=== PATIENT | female | born 1955 | race Caucasian/White ===

== ENCOUNTER 2023-05-08 07:55 | Day surgery (SDC) | payer MEDICARE, SELFPAY ==
[2023-05-08] MEDS: TETRACAINE 0.5% OPHTH 1 DROP EYE-LEFT ×2 (08:15→08:25)
[2023-05-08 08:18] VITALS: BMI 63.9
[2023-05-08 08:22] VITALS: BP 155/100; PULSE 92; RESP 20; TEMP 36.8; O2SAT 92
[2023-05-08] MEDS: KETOROLAC OPHTH 0.5% 1 DROP EYE-LEFT ×2 (08:23→08:32)
--- NOTE | 2023-05-08 08:25 | SUR.PREOP ---
The eye drops brought by the patient (Ketorolac and Prednisolone) are examined and I have determined they are labeled by the patient's pharmacy for this patient as prescribed by the surgeon. The bottles are intact, recently obtained and appear to be correct.
[2023-05-08] MEDS: SODIUM CHLORIDE 0.9 % (FLUSH) 10 ML SYRINGE IVF ×2 (08:48→09:05)
[2023-05-08] MEDS: ONDANSETRON 2 MG/ML inj 4 MG IVP (09:05)
[2023-05-08] MEDS: TETRACAINE 0.5% OPHTH 2 DROP EYE-RIGHT (09:39)
[2023-05-08] MEDS: BALANCED SALT IRRIG SOLN 15 ML EYE-RIGHT (09:46)
--- NOTE | 2023-05-08 09:48 | W.ANESCHARGE ---
Anesthesia Charges Start Date/Time Anesthesia Start Date: 05/08/23 Anesthesia Start Time: 09:34 Stop Date/Time Anesthesia Stop Date: 05/08/23 Anesthesia Stop Time: 10:14
[2023-05-08 10:12] VITALS: BP 136/73; PULSE 88; RESP 20; TEMP 36.7; O2SAT 94
--- NOTE | 2023-05-08 11:02 | W.PM.OPTPROC ---
Procedure Note Date of procedure: 05/08/23 Will [facility] bill your pro fee for this procedure?: Yes Procedure Description: SURGEON: Conchis Bailon MD PREOPERATIVE DIAGNOSIS: Nuclear sclerotic cataract, right eye. POSTOPERATIVE DIAGNOSIS: Nuclear sclerotic cataract, right eye. NAME OF OPERATION: Phacoemulsification of cataract with posterior chamber intraocular lens implantation in the right eye. ANESTHESIA: Topical. ESTIMATED BLOOD LOSS: Less than 2 cc. COMPLICATIONS: None. PATHOLOGY SPECIMEN: None. INDICATIONS: See consult note for details. The risks, benefits and alternatives of the procedure were explained to the patient, who elected to proceed and signed informed consent to do so. PROCEDURE: The patient was brought to the pre-holding area where the right eye was identified as the operative eye. I placed my initials above this eye. The patient received eye drops consisting of 0.5% tetracaine, 1% tropicamide, 10% phenylephrine, and 0.5% ketorolac. The patient was then brought to the operating room where the right eye was again identified as the operative eye. The eye was prepped with Betadine and draped in the usual sterile ophthalmic fashion. A #15 super-sharp blade was used to create a paracentesis site. 1% non-preserved intracameral lidocaine was injected into the anterior chamber. Endocoat was injected into the anterior chamber. A 2.4 mm keratome was used to create a three-plane self-sealing incision 1 mm anterior to the temporal limbus. A cystotome was used to create an anterior capsular leaflet. The Utrata forceps were used to extend this to form a continuous curvilinear capsulorrhexis. Hydrodissection was performed. The cataract was removed with phacoemulsification using the [id number]-rln-qebpoho technique. The irrigation and aspiration tip was used to remove the remaining cortex. Healon was injected into the capsular bag. An SIM ZCB00 intraocular lens of 21.0 diopters was injected into the capsular bag. The irrigation and aspiration tip was used to remove the remaining viscoelastic. Balanced salt solution on a cannula was used to hydrate the wound, and the wound was found to be watertight. The pupil was noted to be round. DISPOSITION: The patient was taken to the recovery room and discharged to home in stable condition. The patient was instructed to call me or go to the emergency department with any sudden change, including dramatic loss of vision, severe pain in the eye or eyebrow region, nausea, or vomiting. The patient will follow up in the clinic tomorrow morning.
== END 2023-05-08 10:43 | disposition home or self-care (01) ==
PROVIDERS: PCP Student in an Organized Health Care Education/Training Program; Visit Provider Ophthalmology
PROC: (CPT 66984; principal; 2023-05-08 08:15)
DX: H25.11 Age-related nuclear cataract, right eye (principal)
CPT/HCPCS: 66984; 00142; A9270; J2250; J2405; J3010; V2632

== ENCOUNTER 2023-05-22 07:57 | Day surgery (SDC) | payer MEDICARE, SELFPAY ==
[2023-05-22] MEDS: TETRACAINE 0.5% OPHTH 1 DROP EYE-LEFT ×2 (08:10→08:20)
[2023-05-22] MEDS: KETOROLAC OPHTH 0.5% 1 DROP EYE-LEFT ×2 (08:18→08:26)
[2023-05-22 08:20] VITALS: BMI 63.9
[2023-05-22 08:25] VITALS: BP 183/86; PULSE 74; RESP 20; TEMP 36.3; O2SAT 94
[2023-05-22] MEDS: SODIUM CHLORIDE 0.9 % (FLUSH) 10 ML SYRINGE IVF (08:30)
--- NOTE | 2023-05-22 08:32 | W.ANESCHARGE ---
Anesthesia Charges Start Date/Time Anesthesia Start Date: 05/22/23 Anesthesia Start Time: 09:14 Stop Date/Time Anesthesia Stop Date: 05/22/23 Anesthesia Stop Time: 09:50 Summary Extremes of Age - Over 70 or under 1: MDA
[2023-05-22] MEDS: ONDANSETRON 2 MG/ML inj 4 MG IVP (09:10)
[2023-05-22] MEDS: TETRACAINE 0.5% OPHTH 2 DROP EYE-LEFT (09:20)
--- NOTE | 2023-05-22 09:21 | W.ANESCHARGE ---
Anesthesia Charges Start Date/Time Anesthesia Start Date: 05/22/23 Anesthesia Start Time: 09:14 Stop Date/Time Anesthesia Stop Date: 05/22/23 Anesthesia Stop Time: 09:50 Summary Extremes of Age - Over 70 or under 1: [employer]
[2023-05-22] MEDS: BALANCED SALT IRRIG SOLN 15 ML EYE-LEFT (09:25)
[2023-05-22 09:48] VITALS: BP 164/95; PULSE 71; RESP 16; TEMP 36.3; O2SAT 96
--- NOTE | 2023-05-22 09:51 | W.PM.OPTPROC ---
Procedure Note Date of procedure: 05/22/23 Will [facility] bill your pro fee for this procedure?: Yes Procedure Description: SURGEON: Conchis Bailon MD PREOPERATIVE DIAGNOSIS: Nuclear sclerotic cataract, left eye. POSTOPERATIVE DIAGNOSIS: Nuclear sclerotic cataract, left eye. NAME OF OPERATION: Phacoemulsification of cataract with posterior chamber intraocular lens implantation in the left eye. ANESTHESIA: Topical. ESTIMATED BLOOD LOSS: Less than 2 cc. COMPLICATIONS: None. PATHOLOGY SPECIMEN: None. INDICATIONS: See consult note for details. The risks, benefits and alternatives of the procedure were explained to the patient, who elected to proceed and signed informed consent to do so. PROCEDURE: The patient was brought to the pre-holding area where the left eye was identified as the operative eye. I placed my initials above this eye. The patient received eye drops consisting of 0.5% tetracaine, 1% tropicamide, 10% phenylephrine, and 0.5% ketorolac. The patient was then brought to the operating room where the left eye was again identified as the operative eye. The eye was prepped with Betadine and draped in the usual sterile ophthalmic fashion. A #15 super-sharp blade was used to create a paracentesis site. 1% non-preserved intracameral lidocaine was injected into the anterior chamber. Endocoat was injected into the anterior chamber. A 2.4 mm keratome was used to create a three-plane self-sealing incision 1 mm anterior to the temporal limbus. A cystotome was used to create an anterior capsular leaflet. The Utrata forceps were used to extend this to form a continuous curvilinear capsulorrhexis. Hydrodissection was performed. The cataract was removed with phacoemulsification using the [id number]-[id number]-mvslyrd technique. The irrigation and aspiration tip was used to remove the remaining cortex. Healon was injected into the capsular bag. An SIM ZCB00 intraocular lens of 21.0 diopters was injected into the capsular bag. The irrigation and aspiration tip was used to remove the remaining viscoelastic. Balanced salt solution on a cannula was used to hydrate the wound, and the wound was found to be watertight. The pupil was noted to be round. DISPOSITION: The patient was taken to the recovery room and discharged to home in stable condition. The patient was instructed to call me or go to the emergency department with any sudden change, including dramatic loss of vision, severe pain in the eye or eyebrow region, nausea, or vomiting. The patient will follow up in the clinic tomorrow morning.
--- NOTE | 2023-05-22 11:16 | P.OPTPRC_ITS ---
Procedure Note Date of procedure: 05/22/23 Will [facility] bill your pro fee for this procedure?: Yes
--- NOTE | 2023-05-22 11:16 | W.PM.OPTPROC ---
Procedure Note Date of procedure: 05/22/23 Will [facility] bill your pro fee for this procedure?: Yes
== END 2023-05-22 10:17 | disposition home or self-care (01) ==
PROVIDERS: PCP Student in an Organized Health Care Education/Training Program; Visit Provider Ophthalmology
PROC: (CPT 66984; principal; 2023-05-22 08:15)
DX: H25.12 Age-related nuclear cataract, left eye (principal)
CPT/HCPCS: 66984; 00142; 99100; J2250; J2405; J3010; V2632

== ENCOUNTER 2023-12-23 12:06 | Emergency (ER) | payer MEDICARE, SELFPAY ==
[2023-12-23] VITALS (19 sets, daily range): BP systolic 128–192; BP diastolic 70–103; PULSE 72–96; RESP 18; TEMP 36.7; O2SAT 91–98; BMI 56.6
--- NOTE | 2023-12-23 12:38 | ED.GENADULT ---
HPI - General Adult General Chief complaint: Chest Pain Stated complaint: burning chest pain, nausous Time Seen by Provider: 12/23/23 12:38 History of Present Illness HPI narrative: Chest pain, burning across chest since 0 last night , while she was just sitting , rates pain 5/ 10 currently. Also c/o nausea , heartburn symptoms, and pain into left arm. Has been having intermittent chest pains for two weeks. History of reflux, HTN, Hyperlipidemia. 68-year-old woman presenting to the emergency department with concern of burning chest pain. GI cocktail does not work. Apparently had tried some small residual she had at home. Historically with bad heartburn. This did actually help very temporarily. A burning pain begins in the midsternum and spreads and then is more sharp. Is not pleuritic. It does use 1 pillow but has elevation of the head of the bed. She has done this with history of heartburn. Just concerned with that might be cardiac. Primary restarted her on omeprazole over the last 2 weeks due to this discomfort that has been present on and off over this time. She does admit that it is not so bad that she can't sleep. She does also later note that does have a hiatal hernia as I was about to inquire Further discussion later reveals that she has been working at weight loss actually having lost little over 20 lb with last month. Related Data Home Medications Medication Instructions Recorded Confirmed lisinopril 5 mg tablet 5 mg PO QDAY 12/11/22 12/11/22 simvastatin 10 mg tablet 10 mg PO QDAY 12/11/22 05/22/23 acetaminophen 500 mg tablet 1,000 mg PO Q6H PRN 05/03/23 05/22/23 (Acetaminophen Extra Strength) aspirin 81 mg tablet,delayed 81 mg PO DAILY 05/03/23 05/22/23 release (Adult Aspirin Regimen) esomeprazole magnesium 40 mg 40 mg PO DAILY 05/03/23 05/22/23 capsule,delayed release gabapentin 300 mg capsule 300 mg PO DAILY 05/03/23 05/22/23 lisinopril 10 1 tab PO DAILY 05/03/23 05/22/23 mg-hydrochlorothiazide 12.5 mg tablet pramipexole 0.5 mg tablet 0.5 mg PO QPM 05/03/23 05/22/23 simvastatin 20 mg tablet 20 mg PO QPM 05/03/23 05/22/23 sucralfate 1 gram tablet 1 g PO QID 05/03/23 05/22/23 Previous Rx's Medication Instructions Recorded hyoscyamine sulfate 0.125 mg 0.25 mg (2 x 0.125 mg) PO QID PRN 12/23/23 tablet (Oscimin) epigatric/low sternal chest pain #30 tabs Allergies Allergy/AdvReac Type Severity Reaction Status Date / Time No Known Drug Allergies Allergy Verified 12/11/22 10:53 Review of Systems Status of ROS: Reports: 6 or more systems reviewed and unremarkable except as noted in History and below [facility] Medical History Hiatal hernia ?K44.9 - Diaphragmatic hernia without obstruction or gangrene (ICD-10) Renal cyst, right ?N28.1 - Cyst of kidney, acquired (ICD-10) Anxiety ?F41.9 - Anxiety disorder, unspecified (ICD-10) TIFFANY (obstructive sleep apnea) ?G47.33 - Obstructive sleep apnea (adult) (pediatric) (ICD-10) Other and unspecified hyperlipidemia ?E78.5 - Hyperlipidemia, unspecified (ICD-10) Esophageal reflux ?K21.9 - Gastro-esophageal reflux disease without esophagitis (ICD-10) Unspecified essential hypertension ?I10 - Essential (primary) hypertension (ICD-10) Lump of skin ?R22.9 - Localized swelling, mass and lump, unspecified (ICD-10) Surgical History Hx of knee surgery ?Z98.890 - Other specified postprocedural states (ICD-10) History of shoulder surgery ?Z98.890 - Other specified postprocedural states (ICD-10) History of surgery on wrist ?Z98.890 - Other specified postprocedural states (ICD-10) Hx of wisdom tooth extraction ?K08.409 - Partial loss of teeth, unspecified cause, unspecified class (ICD-10) History of carpal tunnel release ?Z98.890 - Other specified postprocedural states (ICD-10) Hx of breast biopsy ?Z98.890 - Other specified postprocedural states (ICD-10) Social History Smoking Status: Former smoker How often do you have a drink containing alcohol: never AUDIT-C Alcohol total score: 0 Non-prescribed substance use: denies use Caffeine: Yes service: No Exam Narrative: Exam Narrative: Pleasant. Breathing easily. Appears mildly anxious. Appears little uncomfortable. Assist to set. Heart in regular rate and rhythm. Lungs appear to be clear. Bowel sounds in the chest. Lungs appear to be clear. Chest discomfort is not really reproducible. Abdomen is overweight soft. Nontender. Extremities are well perfused. Without edema. Const: Vital Signs, click to edit/add: Vital Signs - 24 hr 12/23/23 12:18 12/23/23 12:32 12/23/23 12:32 Temperature 98.0 F 98.0 F Pulse Rate Pulse Rate [Pulse Oximeter] 96 76 Respiratory Rate 18 18 Blood Pressure Blood Pressure [Ri ght Upper Arm] 192/103 H 153/88 H Pulse Oximetry 98 97 97 Oxygen Delivery Me thod Room Air Room Air Room Air 12/23/23 12:40 12/23/23 12:45 12/23/23 13:00 Temperature Pulse Rate 77 77 72 Pulse Rate [Pulse Oximeter] Respiratory Rate Blood Pressure Blood Pressure [Ri ght Upper Arm] Pulse Oximetry 92 92 93 Oxygen Delivery Me thod 12/23/23 13:06 Temperature Pulse Rate 77 Pulse Rate [Pulse Oximeter] Respiratory Rate Blood Pressure 128/70 Blood Pressure [Ri ght Upper Arm] Pulse Oximetry 93 Oxygen Delivery Me thod Documenting provider has reviewed patient's vital signs: yes Course Vital Signs Vital signs: Initial Vital Signs Temperature 98.0 F 12/23/23 12:18 Temperature Source Temporal Artery Scan 12/23/23 12:18 Pulse Rate 96 12/23/23 12:18 Pulse Rhythm Regular 12/23/23 12:18 Respiratory Rate 18 12/23/23 12:18 Blood Pressure 192/103 H 12/23/23 12:18 Blood Pressure Mean 132 H 12/23/23 12:18 Blood Pressure Position Supine 12/23/23 12:18 Pulse Oximetry 98 12/23/23 12:18 Oxygen Delivery Method Room Air 12/23/23 12:18 Vital Signs Temperature 98.0 F 12/23/23 12:18 Pulse Rate 96 12/23/23 12:18 Respiratory Rate 18 12/23/23 12:18 Blood Pressure 192/103 H 12/23/23 12:18 Pulse Oximetry 98 12/23/23 12:18 Oxygen Delivery Method Room Air 12/23/23 12:18 Temperature 98.0 F 12/23/23 12:32 Pulse Rate 73 12/23/23 14:31 Respiratory Rate 18 12/23/23 12:32 Blood Pressure 145/81 H 12/23/23 14:31 Pulse Oximetry 91 12/23/23 14:31 Oxygen Delivery Method Room Air 12/23/23 12:32 Medications Administered Medications: Discontinued Medications Generic Name Dose Route Start Last Admin Trade Name Freq PRN Reason Stop Dose Admin Hyoscyamine 0.25 mg 12/23/23 14:00 12/23/23 14:07 Hyoscyamine Sulfate 0.125 Mg Tab SUBLINGUAL 12/23/23 14:01 0.25 mg ONCE ONE Administration Lidocaine HCl 7.5 ml 12/23/23 12:48 12/23/23 13:03 Lidocaine Hcl 4 % Top Soln 50 Ml Bottle PO 12/23/23 12:49 7.5 ml ONCE ONE Administration Lidocaine/Aluminum/Magnesium/Simeth 30 ml 12/23/23 12:48 12/23/23 13:03 Mag Hydrox/Aluminum Hyd/Simeth 30 Ml Oral.Susp PO 12/23/23 12:49 30 ml ONCE ONE Administration Ondansetron HCl 4 mg 12/23/23 15:25 12/23/23 15:30 Ondansetron 2 Mg/Ml Inj IVP 12/23/23 15:26 4 mg ONCE ONE Administration Medical Decision Making MDM Narrative Medical decision making narrative: Certainly a cardiac etiology is of concern. Will evaluate for this. I think this is more likely though some degree of esophageal reflux and esophageal irritation or gastrtis. Vascular disruption also remains in differential. Does not appear to have a pulmonary component. History and persistence independent of ingestion do not suggest gallbladder disease though that is possible I suppose as well. Pulmonary embolus is well in differential. Less likely pneumothorax or pneumomediastinum EKG reviewed and reassuring. I discuss this. Obtain labs and monitor on alarm security or surveillance monitor. Chest x-ray reviewed by me without pneumothorax. Does have some opacity/consolidation in the lower lungs that I think is more suggestive of atelectasis. Radiology over-read of chest x-ray also noting some cardiomegaly. I wonder if this was more related to portable x-ray? Labs are reassuring and with normal proBNP Did trial GI cocktail and Zofran. Admittedly was temporarily improved. Discomfort came back somewhat. Trial of hyoscyamine. This seemed to help she said. Mentioned a few times how she feels this ball that has to come up in the low sternum cervical if she could just cough or vomit it up somehow she says. I suspect this is related to inflammatory changes and tension in the distal esophagus or stomach. See patient discharge plan Medical Records Medical records reviewed: Yes I reviewed the patient's medical records Lab Data Lab results reviewed: Yes I reviewed the patient's lab results Labs: Lab Results 12/23/23 12/23/23 12/23/23 Range/Units 12:24 12:32 13:52 WBC 6.63 (4.50-11.00) K/uL RBC 4.60 (4.00-5.20) m/uL Hgb 13.4 (12.0-16.0) gm/dL Hct 40.5 (33.0-51.0) % MCV 88 (80-100) fL MCH 29 (26-34) pg MCHC 33 (32-36) gm/dL RDW Coeff of Matt 13.0 (11.5-15.5) % Plt Count 244 (140-440) K/uL Neut % (Auto) 69.0 (42.0-72.0) % Lymph % (Auto) 23.1 (20-44) % [place] % (Auto) 6.6 (0.0-11.0) % Eos % (Auto) 0.6 (0.0-7.0) % Baso % (Auto) 0.5 (0.0-3.0) % Neut # (Auto) 4.58 (1.7-7.0) K/uL Lymph # (Auto) 1.53 (0.90-2.90) K/uL [place]affee # (Auto) 0.40 (0.00-0.90) K/UL Eos # (Auto) 0.04 (0.00-0.50) K/uL Baso # (Auto) 0.03 (0.00-0.30) K/uL Abs Immat Gran (auto) 0.01 (0.00-0.30) K/uL Imm/Tot Granulo (auto) 0.2 % PT INR D-Dimer Quant (PE/DVT) (0.00-0.50) ug/ml Sodium 139 (135-149) mmol/L Potassium 3.8 (3.6-5.1) mmol/L Chloride 102 (96-114) mmol/L Carbon Dioxide 29 (20-32) mmol/L Anion Gap 8 (7-15) mEq/L BUN 24 (7-30) mg/dL Creatinine 0.7 (0.5-1.5) mg/dL Estimated Creat Clear 47.10 Estimated GFR 93 ml/min Glucose 114 (60-115) mg/dL Calcium 10.1 (8.4-10.6) mg/dL Total Bilirubin 0.9 (0.1-1.5) mg/dL Direct Bilirubin 0.3 (0.0-0.5) mg/dL AST 23 (12-35) U/L ALT 20 (4-35) U/L Alkaline Phosphatase 104 (40-150) U/L Troponin I < 0.01 L (0.01-0.04) ng/mL C-Reactive Protein < 0.5 L (0.5-1.0) mg/dL NT-Pro-B Natriuret Pep 32 pg/mL Total Protein 8.1 (6.0-8.3) g/dL Albumin 4.3 (3.3-5.0) g/dL Lipase 45 (23-300) U/L Lab Acknowledgement Test Added POC Troponin I 0.00 L (0.01-0.04) ng/ml 12/23/23 Range/Units 15:12 WBC (4.50-11.00) K/uL RBC (4.00-5.20) m/uL Hgb (12.0-16.0) gm/dL Hct (33.0-51.0) % MCV (80-100) fL MCH (26-34) pg MCHC (32-36) gm/dL RDW Coeff of Matt (11.5-15.5) % Plt Count (140-440) K/uL Neut % (Auto) (42.0-72.0) % Lymph % (Auto) (20-44) % [place]affee % (Auto) (0.0-11.0) % Eos % (Auto) (0.0-7.0) % Baso % (Auto) (0.0-3.0) % Neut # (Auto) (1.7-7.0) K/uL Lymph # (Auto) (0.90-2.90) K/uL [place] # (Auto) (0.00-0.90) K/UL Eos # (Auto) (0.00-0.50) K/uL Baso # (Auto) (0.00-0.30) K/uL Abs Immat Gran (auto) (0.00-0.30) K/uL Imm/Tot Granulo (auto) % PT Cancelled INR Cancelled D-Dimer Quant (PE/DVT) 0.41 (0.00-0.50) ug/ml Sodium (135-149) mmol/L Potassium (3.6-5.1) mmol/L Chloride (96-114) mmol/L Carbon Dioxide (20-32) mmol/L Anion Gap (7-15) mEq/L BUN (7-30) mg/dL Creatinine (0.5-1.5) mg/dL Estimated Creat Clear Estimated GFR ml/min Glucose (60-115) mg/dL Calcium (8.4-10.6) mg/dL Total Bilirubin (0.1-1.5) mg/dL Direct Bilirubin (0.0-0.5) mg/dL AST (12-35) U/L ALT (4-35) U/L Alkaline Phosphatase (40-150) U/L Troponin I (0.01-0.04) ng/mL C-Reactive Protein (0.5-1.0) mg/dL NT-Pro-B Natriuret Pep pg/mL Total Protein (6.0-8.3) g/dL Albumin (3.3-5.0) g/dL Lipase (23-300) U/L Lab Acknowledgement POC Troponin I (0.01-0.04) ng/ml ECG Data Attestation: I personally reviewed and interpreted this ECG as follows: (Normal sinus rhythm. Without ischemic changes. Rate of 90.) Discharge Plan Discharge Clinical Impression: Atypical chest pain, Hiatal hernia with GERD Patient Disposition: Home w/ Parent or Adult Condition: Improved Additional Instructions: I do think that some of your discomfort is related to gastroesophageal reflux. I have not seen evidence otherwise to indicate that it is your heart. This surgery I was talking about is a Bri fundoplication. I am not sure that that is what was discussed with you about your hiatal hernia. You might consider addition of a medication like famotidine temporarily and regularly over the next 2 weeks or so. This is an acid supervisor grips. This can be though also taken on an as-needed basis with more rapid onset than a proton pump inhibitor like omeprazole or use omeprazole. You can still take liquid antacid/anti-gas for flares or Tums or Pepto. Stay well-hydrated. Sounds like you're doing more physical activity. Weight less can be complicated. As you are able I would bring weights into your workouts/general activity. Would probably be good idea to get professional advice on how to be working out and/or losing weight. It sounds as though is though you're headed in the right direction. The medication that I mentioned that can be helpful for some persons who are no longer having success, is semaglutide. I am not trying to encourage this necessary, it was just a part of our conversation. I sent in a prescription of hyoscyamine as you seemed to indicate that this was helpful. The idea here is that this helps with smooth muscle relaxation. The test of clotting called D-dimer was normal Prescriptions: New hyoscyamine sulfate [Oscimin] 0.125 mg tablet 0.25 mg PO QID PRN (Reason: epigatric/low sternal chest pain) Qty: 30 1RF No Action lisinopril 5 mg tablet 5 mg PO QDAY simvastatin 10 mg tablet 10 mg PO QDAY acetaminophen [Acetaminophen Extra Strength] 500 mg tablet 1,000 mg PO Q6H PRN aspirin [Adult Aspirin Regimen] 81 mg tablet,delayed release (DR/EC) 81 mg PO DAILY sucralfate 1 gram tablet 1 g PO QID pramipexole 0.5 mg tablet 0.5 mg PO QPM simvastatin 20 mg tablet 20 mg PO QPM esomeprazole magnesium 40 mg capsule,delayed release(DR/EC) 40 mg PO DAILY gabapentin 300 mg capsule 300 mg PO DAILY lisinopril-hydrochlorothiazide 10-12.5 mg tablet 1 tab PO DAILY Follow Up/Referrals: Malecha,Deepa M, PA-C [Primary Care Provider] - Stand Alone Forms: [employer] Info Instructions
[2023-12-23 12:43] LABS: Basophils Absolute Auto 0.03 K/uL (0.00-0.30); Basophils Percent Auto 0.5 % (0.0-3.0); Eosinophils Absolute Auto 0.04 K/uL (0.00-0.50); Eosinophils Percent Auto 0.6 % (0.0-7.0); Hematocrit 40.5 % (33.0-51.0); Hemoglobin* 13.4 gm/dL (12.0-16.0); Immature Granulocytes Abs Auto 0.01 K/uL (0.00-0.30); Immature Granulocytes Pct Auto 0.2 %; Lymphocytes Absolute Auto 1.53 K/uL (0.90-2.90); Lymphocytes Percent Auto 23.1 % (20-44); Mean Corpuscular HGB Conc 33 gm/dL (32-36); Mean Corpuscular Hemoglobin 29 pg (26-34); Mean Corpuscular Volume 88 fL (80-100); Monocytes Percent Auto 6.6 % (0.0-11.0); Neutrophils Absolute Auto 4.58 K/uL (1.7-7.0); Platelet Count* 244 K/uL (140-440); White Blood Count* 6.63 K/uL (4.50-11.00)
[2023-12-23 12:45] LABS: Slide Review Reflex No
--- NOTE | 2023-12-23 12:49 | XR_ITS ---
Final Report Patient: RAYSHAWN DA SILVA Facility:?[facility] Patient ID:?[id number] Site Patient ID:?[id number]. Site :?[id number] Study:?XRay Chest 1 VIEW PORTABLE-12/23/2023 1:26:24 PM Ordering Physician:LILIAM Final Report: INDICATION: BURNING CHEST PAIN NAUSA TECHNIQUE: Chest 1 views. COMPARISON: None. IMPRESSION: Cardiovascular and mediastinum: Moderate cardiomegaly. Lungs and pleural spaces: Mild central vascular congestion and interstitial prominence likely related to mild interstitial edema. Bibasilar opacities favoring atelectasis. No effusion or pneumothorax. Bones and soft tissues: No significant findings. Dictated by Be Sands MD @ 12/23/2023 3:28:35 PM (Electronic Signature)
[2023-12-23 12:55] LABS: Chloride* 102 mmol/L (96-114)
[2023-12-23 12:56] LABS: Potassium* 3.8 mmol/L (3.6-5.1); Sodium* 139 mmol/L (135-149)
[2023-12-23 12:58] LABS: Creatinine* 0.7 mg/dL (0.5-1.5); Estimated Glomerular Filt Rate 93 ml/min
[2023-12-23 12:59] LABS: Anion Gap 8 mEq/L (7-15); Blood Urea Nitrogen* 24 mg/dL (7-30); Calcium* 10.1 mg/dL (8.4-10.6); Carbon Dioxide* 29 mmol/L (20-32); Glucose* 114 mg/dL (60-115)
[2023-12-23] MEDS: MAG HYDROX/ALUMINUM HYD/SIMETH 30 ML ORAL.SUSP PO (13:03)
[2023-12-23] MEDS: lidocaine HCL 4 % TOP SOLN 50 ML BOTTLE 7.5 ML PO (13:03)
[2023-12-23 13:05] LABS: Albumin* 4.3 g/dL (3.3-5.0)
[2023-12-23 13:08] LABS: Alkaline Phosphatase* 104 U/L (40-150); Aspartate Amino Transferase* 23 U/L (12-35); Bilirubin Direct* 0.3 mg/dL (0.0-0.5); Bilirubin Total* 0.9 mg/dL (0.1-1.5); Lipase* 45 U/L (23-300); Total Protein* 8.1 g/dL (6.0-8.3)
[2023-12-23 13:09] LABS: Alanine Aminotransferase* 20 U/L (4-35)
[2023-12-23 13:23] LABS: C Reactive Protein* < 0.5 mg/dL (0.5-1.0); NT Pro B Type NatriureticPept* 32 pg/mL; Troponin I* < 0.01 ng/mL (0.01-0.04)
[2023-12-23] MEDS: HYOSCYAMINE SULFATE 0.125 MG TAB 0.25 MG SUBLINGUAL (14:07)
[2023-12-23] MEDS: ONDANSETRON 2 MG/ML inj 4 MG IVP (15:30)
[2023-12-23 15:44] LABS: D Dimer Quantitative* 0.41 ug/ml (0.00-0.50)
== END 2023-12-23 16:01 | disposition home or self-care (01) ==
PROVIDERS: Emergency Provider Family Medicine; PCP Student in an Organized Health Care Education/Training Program
DX: R07.9 Chest pain, unspecified (principal); K21.9 Gastro-esophageal reflux disease without esophagitis
CPT/HCPCS: 36415; 71045; 80048; 80076; 83690; 83880; 84484; 85025; 85379; 85610; 86140; 93005; 96374; 99284; 99285; A9270; J2405

== ENCOUNTER 2024-01-02 13:59 | Outpatient (CLI) | payer MEDICARE, SELFPAY ==
--- NOTE | 2024-01-02 14:30 | XR_ITS ---
Patient: RAYSHAWN DA SILVA Facility:?[facility] Patient ID:?[id number] Site Patient ID:?[id number]. Site :?[id number] Study:?DEXA-Bone Density SPINE/BOTH HIPS-01/02/2024 3:06:49 PM Ordering Physician:FLORI Final Report: DXA BONE MINERAL DENSITY STUDY Reason for exam: Postmenopausal, screening. Current height (in): 64.0. Weight (lb): 340.0. Menopause age: 48. Ethnicity: White. 1. Have you had a previous hip or vertebral fracture? No. 2. Have you had any fractures during your adult life which did not result from significant trauma (e.g., auto accident)? No. 3. Did either of your parents have a hip fracture? No. 4. Do you smoke? Yes. 5. Have you ever taken Glucocorticoids? No. 6. Do you have rheumatoid arthritis? No. 7. Do you have secondary osteoporosis? No. 8. Do you drink 3 or more alcoholic drinks per day? No. 9. Are you being treated for osteoporosis? No. 10. Have you ever taken any of the following medications: Actonel, Evista, Fosamax, Miacalcin, Reclast, Boniva, Forteo, HRT (i.e. estrogen/hormone therapy), Protelos, Prolia, Vitamin D, Calcium, other ? please specify. ANSWER: No. 11. Do you have any of the following medical conditions: Anorexia or bulimia, asthma or emphysema, end stage renal disease, hyperparathyroidism, any seizure disorders, cancer, inflammatory bowel diseases, hysterectomy, other ? please specify. ANSWER: No. 12. What was your maximum height (inches)? 65. 13. Do you perform weight bearing exercise regularly? Yes. 14. Do you regularly consume dairy products? Yes. 15. Do you drink caffeinated beverages? Yes. 16. At what age did your period start? 11. 17. Are you premenopausal? No. 18. How many full term pregnancies have you had? 2. 19. Have you ever missed your period for more than 6 months in a row (not including or menopause)? No. TECHNIQUE: Bone mineral density study was performed using the [employer]. FINDINGS: The results of the study expressed as bone mineral density (BMD) are as follows: Lumbar spine L1 to L4: BMD: 1.010 g/cm2. T-score: -0.3. Z-score: 1.8. Neck Left: BMD: 0.763 g/cm2. T-score: -0.8. Z-score: 1.1. Right: BMD: 0.679 g/cm2. T-score: -1.5. Z-score: 0.3. Total Left: BMD: 0.888 g/cm2. T-score: -0.4. Z-score: 1.1. Right: BMD: 0.864 g/cm2. T-score: -0.6. Z-score: 0.9. IMPRESSION: Osteopenia. FRAX 10-year Fracture Risk Major Osteoporotic Fracture: 8.5 percent Hip Fracture: 1.9 percent Reported Risk Factors: [place] () Neck BMD=0.679, BMI=47.3, smoking. Input outside FRAX limits. Adjusted to: Weight 125 kg. Oziel Rosales M.D. Diagnostic Radiologist [email or web address] JOSE/[email or web address] / be/Dictated by: Oziel Rosales MD @ 01/03/2024 9:20:00 AM Signed by:?Oziel Rosales MD @01/04/2024 10:15:00 AM (Electronic Signature)
== END 2024-01-02 14:00 | disposition home or self-care (01) ==
LOC: RAD 14:00
PROVIDERS: PCP Student in an Organized Health Care Education/Training Program; Visit Provider Student in an Organized Health Care Education/Training Program
DX: Z13.820 Encounter for screening for osteoporosis (principal); M85.88 Other specified disorders of bone density and structure, other site; Z78.0 Asymptomatic menopausal state
CPT/HCPCS: 77080

== ENCOUNTER 2024-05-12 12:20 | Emergency (ER) | payer MEDICARE, SELFPAY ==
[2024-05-12] VITALS (33 sets, daily range): BP systolic 102–175; BP diastolic 53–95; PULSE 74–95; RESP 16–20; TEMP 37.1; O2SAT 92–98; BMI 58.2
--- NOTE | 2024-05-12 14:09 | ED.CHESTPAIN ---
HPI - Chest Pain General Time Seen by Provider: 14:09 Date Seen: 05/12/24 Chief Complaint: Chest Pain Stated Complaint: Chest pain, arm pain, nausea Time Seen by Provider: 05/12/24 14:09 Source: patient, family, RN notes reviewed and old records reviewed Mode of arrival: ambulatory Limitations: no limitations History of Present Illness HPI narrative: 69-year-old female with history of hypertension and up hypocholesterolemia as well as gastritis who presents today with nausea and chest pain. Patient describes burning pressure in the middle of the chest along with nausea, no vomiting. Does not have pain with swallowing, is eating and drinking okay although has not had anything date today. Pain improved with Mylanta at home. Pain is been intermittent for four days, more consistent today. Related Data Home Medications ?Medication ?Instructions ?Recorded ?Confirmed lisinopril 5 mg tablet 5 mg PO QDAY 12/11/22 12/11/22 simvastatin 10 mg tablet 10 mg PO QDAY 12/11/22 05/22/23 acetaminophen 500 mg tablet 1,000 mg PO Q6H PRN 05/03/23 05/22/23 (Acetaminophen Extra Strength) aspirin 81 mg tablet,delayed 81 mg PO DAILY 05/03/23 05/22/23 release (Adult Aspirin Regimen) esomeprazole magnesium 40 mg 40 mg PO DAILY 05/03/23 05/22/23 capsule,delayed release gabapentin 300 mg capsule 300 mg PO DAILY 05/03/23 05/22/23 lisinopril 10 1 tab PO DAILY 05/03/23 05/22/23 mg-hydrochlorothiazide 12.5 mg tablet pramipexole 0.5 mg tablet 0.5 mg PO QPM 05/03/23 05/22/23 simvastatin 20 mg tablet 20 mg PO QPM 05/03/23 05/22/23 sucralfate 1 gram tablet 1 g PO QID 05/03/23 05/22/23 Previous Rx's ?Medication ?Instructions ?Recorded hyoscyamine sulfate 0.125 mg 0.25 mg (2 x 0.125 mg) PO QID PRN 12/23/23 tablet (Oscimin) epigatric/low sternal chest pain #30 tabs Allergies Allergy/AdvReac Type Severity Reaction Status Date / Time No Known Drug Allergies Allergy Verified 05/12/24 12:52 PFSH PFS Medical History Hiatal hernia ?K44.9 - Diaphragmatic hernia without obstruction or gangrene (ICD-10) Renal cyst, right ?N28.1 - Cyst of kidney, acquired (ICD-10) Anxiety ?F41.9 - Anxiety disorder, unspecified (ICD-10) TIFFANY (obstructive sleep apnea) ?G47.33 - Obstructive sleep apnea (adult) (pediatric) (ICD-10) Other and unspecified hyperlipidemia ?E78.5 - Hyperlipidemia, unspecified (ICD-10) Esophageal reflux ?K21.9 - Gastro-esophageal reflux disease without esophagitis (ICD-10) Unspecified essential hypertension ?I10 - Essential (primary) hypertension (ICD-10) Lump of skin ?R22.9 - Localized swelling, mass and lump, unspecified (ICD-10) Surgical History Hx of knee surgery ?Z98.890 - Other specified postprocedural states (ICD-10) History of shoulder surgery ?Z98.890 - Other specified postprocedural states (ICD-10) History of surgery on wrist ?Z98.890 - Other specified postprocedural states (ICD-10) Hx of wisdom tooth extraction ?K08.409 - Partial loss of teeth, unspecified cause, unspecified class (ICD-10) History of carpal tunnel release ?Z98.890 - Other specified postprocedural states (ICD-10) Hx of breast biopsy ?Z98.890 - Other specified postprocedural states (ICD-10) Social History Smoking Status: Former smoker How often do you have a drink containing alcohol: never AUDIT-C Alcohol total score: 0 Non-prescribed substance use: denies use Caffeine: Yes service: No Exam Narrative Exam Narrative: General: Well-developed and well-nourished, no acute distress Head: Atraumatic and normocephalic Eyes: Pupils are equal reactive, extraocular motions intact, conjunctiva clear ENT: External nose and ears are normal, posterior pharynx without erythema or exudate Neck: No midline cervical tenderness, full spontaneous range of motion the neck, trachea midline, no adenopathy Heart: Regular rate and rhythm no murmurs or thrills Lungs: Clear to auscultation bilaterally without wheezes or crackles Abdomen: Soft, epigastric tenderness, nondistended with active bowel sounds Musculoskeletal: No tenderness, deformity, or edema Neurologic: Awake, alert, and oriented x3, no gross focal neurologic deficits, cranial nerves intact as tested Psych: Mood and affect are appropriate Skin: No rashes Const Vital Signs, click to edit/add: Vital Signs - 24 hr 05/12/24 12:48 05/12/24 13:54 05/12/24 13:55 Temperature 98.8 F Pulse Rate 83 79 Pulse Rate [Pulse Oximeter] 83 Respiratory Rate 20 Blood Pressure 151/78 H Blood Pressure [Right Upper Arm] 159/90 H Pulse Oximetry 94 93 96 Oxygen Delivery Method Room Air 05/12/24 14:00 05/12/24 14:30 05/12/24 15:01 Temperature Pulse Rate 79 88 77 Pulse Rate [Pulse Oximeter] Respiratory Rate Blood Pressure Blood Pressure [Right Upper Arm] Pulse Oximetry 94 96 95 Oxygen Delivery Method 05/12/24 15:02 05/12/24 15:08 05/12/24 15:12 Temperature Pulse Rate 78 78 78 Pulse Rate [Pulse Oximeter] Respiratory Rate Blood Pressure 175/80 H 148/74 H 138/77 Blood Pressure [Right Upper Arm] Pulse Oximetry 96 96 94 Oxygen Delivery Method 05/12/24 15:17 05/12/24 15:18 05/12/24 15:22 Temperature Pulse Rate 79 74 84 Pulse Rate [Pulse Oximeter] Respiratory Rate Blood Pressure 148/83 H 140/72 H Blood Pressure [Right Upper Arm] Pulse Oximetry 97 97 97 Oxygen Delivery Method 05/12/24 15:27 05/12/24 15:30 05/12/24 15:33 Temperature Pulse Rate 75 77 84 Pulse Rate [Pulse Oximeter] Respiratory Rate Blood Pressure 134/74 146/80 H Blood Pressure [Right Upper Arm] Pulse Oximetry 98 93 98 Oxygen Delivery Method 05/12/24 18:45 05/12/24 18:46 05/12/24 18:52 Temperature Pulse Rate 79 78 83 Pulse Rate [Pulse Oximeter] Respiratory Rate Blood Pressure 151/67 H 162/60 H Blood Pressure [Right Upper Arm] Pulse Oximetry 95 96 95 Oxygen Delivery Method 05/12/24 18:59 05/12/24 19:00 05/12/24 19:03 Temperature Pulse Rate 95 92 Pulse Rate [Pulse Oximeter] 93 Respiratory Rate 20 Blood Pressure 132/69 Blood Pressure [Right Upper Arm] 162/90 H Pulse Oximetry 94 93 92 Oxygen Delivery Method Room Air 05/12/24 19:12 05/12/24 19:23 05/12/24 19:33 Temperature Pulse Rate 78 79 81 Pulse Rate [Pulse Oximeter] Respiratory Rate 16 16 Blood Pressure 136/77 150/83 H 149/77 H Blood Pressure [Right Upper Arm] Pulse Oximetry 94 94 95 Oxygen Delivery Method 05/12/24 19:42 Temperature Pulse Rate 82 Pulse Rate [Pulse Oximeter] Respiratory Rate 16 Blood Pressure 150/78 H Blood Pressure [Right Upper Arm] Pulse Oximetry 95 Oxygen Delivery Method Course Course ED Course: Patient seen examined, reviewed prior emergency department visit from December 23 which was for chest pain which at that time she described as burning, negative cardiac evaluation and patient was discharged. Patient presents today with burning pain in the chest with some pressure, nausea, improved transiently with Mylanta but comes back. Denies shortness of breath, leg swelling, abdominal pain. No prior abdominal surgeries. Initial EKG is reassuring, labs are ordered, suspect gastrointestinal source of symptoms today, will check troponin as well as upper abdominal labs. Reevaluation(s) Time of Reevaluation #1: 15:16 Reevaluation #1: Labs independently interpreted by me with elevated troponin 0.17, CRP normal, BNP is normal, lipase is normal. Will repeat troponin at 2:00 a.m. to trend, no EKG changes. EKG independently interpreted by me performed at 12:56 p.m. demonstrates sinus rhythm rate 87, no acute ST elevations or depressions, normal intervals, normal axis, MT 152, QTC 438. No prior for comparison. Time of Reevaluation #2: 18:16 Reevaluation #2: Repeat troponin is 0.19. Will discuss with cardiology, likely transfer. Heparin and nitroglycerin ordered. Time of Reevaluation #3: 18:29 Reevaluation #3: Care discussed with Dr. Lomas, cardiology who agrees with plan for heparin and nitroglycerin, recommend sublingual before starting drip and accepts patient for transfer with delay. Vital Signs Vital signs: Initial Vital Signs Temperature 98.8 F 05/12/24 12:48 Temperature Source Temporal Artery Scan 05/12/24 12:48 Pulse Rate 83 05/12/24 12:48 Pulse Rhythm Regular 05/12/24 12:48 Respiratory Rate 20 05/12/24 12:48 Blood Pressure 159/90 H 05/12/24 12:48 Blood Pressure Mean 113 H 05/12/24 12:48 Pulse Oximetry 94 05/12/24 12:48 Oxygen Delivery Method Room Air 05/12/24 12:48 Vital Signs Temperature 98.8 F 05/12/24 12:48 Pulse Rate 83 05/12/24 12:48 Respiratory Rate 20 05/12/24 12:48 Blood Pressure 159/90 H 05/12/24 12:48 Pulse Oximetry 94 05/12/24 12:48 Oxygen Delivery Method Room Air 05/12/24 12:48 Temperature 98.8 F 05/12/24 12:48 Pulse Rate 82 05/12/24 19:42 Respiratory Rate 16 05/12/24 19:42 Blood Pressure 150/78 H 05/12/24 19:42 Pulse Oximetry 95 05/12/24 19:42 Oxygen Delivery Method Room Air 05/12/24 18:59 Medications Administered Medications: Generic Name Dose Route Start Last Admin Trade Name Freq PRN Reason Stop Dose Admin Aspirin 324 mg 05/12/24 18:28 05/12/24 18:50 Aspirin 81 Mg Tab.Chew PO 05/12/24 18:29 324 mg ONCE ONE Administration Heparin Sodium (Porcine) 4,000 unit 05/12/24 18:23 05/12/24 18:47 Heparin 5,000 Unit/0.5 Ml Inj IVP 05/12/24 18:24 4,000 unit ONCE ONE Administration Heparin Sodium/Dextrose 25,000 unit in 500 mls @ 0 mls/hr 05/12/24 18:30 05/12/24 18:49 Heparin IV 1,000 unit/hr .Q0M JOSE R 20 mls/hr Administration Protocol Per Protocol Nitroglycerin 0.4 mg 05/12/24 18:29 05/12/24 18:49 Nitroglycerin 0.4 Mg Tab.Subl SUBLINGUAL 0.4 mg Q5M PRN Administration Pramipexole Dihydrochloride 0.5 mg 05/12/24 19:53 05/12/24 20:04 Pramipexole 0.25 Mg Tablet PO 05/12/24 19:54 0.5 mg HS ONE Administration Simvastatin 20 mg 05/12/24 21:00 05/12/24 20:04 Simvastatin 20 Mg Tablet PO 20 mg HS JOSE R Administration Discontinued Medications Generic Name Dose Route Start Last Admin Trade Name Luke PRN Reason Stop Dose Admin Famotidine 20 mg 05/12/24 14:22 05/12/24 16:02 Famotidine 10 Mg/Ml Inj IVP 05/12/24 14:23 20 mg ONCE ONE Administration Hyoscyamine 0.125 mg 05/12/24 14:23 05/12/24 16:02 Hyoscyamine Sulfate 0.125 Mg Tab SUBLINGUAL 05/12/24 14:24 0.125 mg ONCE ONE Administration Lidocaine/Aluminum/Magnesium/Simeth 30 ml 05/12/24 14:22 05/12/24 16:02 Gi Cocktail (Visc Lido/Antacid) 30 Ml PO 05/12/24 14:23 30 ml ONCE ONE Administration MDM - Chest Pain Lab Data Labs: Lab Results 05/12/24 05/12/24 05/12/24 Range/Units 14:20 14:22 14:34 INR 0.95 (0.91-1.10) APTT 31 (23-33) Seconds Sodium 136 (135-149) mmol/L Potassium 4.1 (3.6-5.1) mmol/L Chloride 100 (96-114) mmol/L Carbon Dioxide 29 (20-32) mmol/L Anion Gap 7 (7-15) mEq/L BUN 16 (7-30) mg/dL Creatinine 0.7 (0.5-1.5) mg/dL Estimated Creat Clear 46.43 Estimated GFR 92 ml/min Glucose 115 (60-115) mg/dL Calcium 10.3 (8.4-10.6) mg/dL Total Bilirubin 0.6 (0.1-1.5) mg/dL Direct Bilirubin 0.2 (0.0-0.5) mg/dL AST 21 (12-35) U/L ALT 20 (4-35) U/L Alkaline Phosphatase 125 (40-150) U/L Troponin I 0.17 H* (0.01-0.04) ng/mL C-Reactive Protein < 0.5 L (0.5-1.0) mg/dL NT-Pro-B Natriuret Pep 402 pg/mL Total Protein 7.5 (6.0-8.3) g/dL Albumin 4.2 (3.3-5.0) g/dL Lipase 58 (23-300) U/L Lab Acknowledgement POC Troponin I 0.14 H (0.01-0.04) ng/ml 05/12/24 05/12/24 05/12/24 Range/Units 14:44 15:44 17:00 INR (0.91-1.10) APTT (23-33) Seconds Sodium (135-149) mmol/L Potassium (3.6-5.1) mmol/L Chloride (96-114) mmol/L Carbon Dioxide (20-32) mmol/L Anion Gap (7-15) mEq/L BUN (7-30) mg/dL Creatinine (0.5-1.5) mg/dL Estimated Creat Clear Estimated GFR ml/min Glucose (60-115) mg/dL Calcium (8.4-10.6) mg/dL Total Bilirubin (0.1-1.5) mg/dL Direct Bilirubin (0.0-0.5) mg/dL AST (12-35) U/L ALT (4-35) U/L Alkaline Phosphatase (40-150) U/L Troponin I 0.19 H* (0.01-0.04) ng/mL C-Reactive Protein (0.5-1.0) mg/dL NT-Pro-B Natriuret Pep pg/mL Total Protein (6.0-8.3) g/dL Albumin (3.3-5.0) g/dL Lipase (23-300) U/L Lab Acknowledgement Test Added Test Added POC Troponin I (0.01-0.04) ng/ml Critical Care Time Critical Care Time Critical Care Time: Yes (NSTEMI) Attestation: The patient required my highest level preparedness to intervene emergently and I personally spent this critical care time directly and personally managing the patient. This critical care time included: Obtaining a history; Examining the patient; Pulse oximetry; Ordering and reviewing of studies; Arranging urgent treatment with development of a management plan; Evaluation of patients response to treatment; Frequent reassessment discussions with other providers. This critical care time was performed to assess and manage the high probability of imminent life-threatening deterioration that could result in multiorgan failure. It was exclusive of separate billable procedures and treating other patients and teaching time. Total Critical Care Time in Minutes: 80 Discharge Plan Discharge Clinical Impression: Non-ST elevation [place] (NSTEMI) Patient Disposition: [facility] Prescriptions: No Action lisinopril 5 mg tablet 5 mg PO QDAY simvastatin 10 mg tablet 10 mg PO QDAY acetaminophen [Acetaminophen Extra Strength] 500 mg tablet 1,000 mg PO Q6H PRN aspirin [Adult Aspirin Regimen] 81 mg tablet,delayed release (DR/EC) 81 mg PO DAILY sucralfate 1 gram tablet 1 g PO QID pramipexole 0.5 mg tablet 0.5 mg PO QPM simvastatin 20 mg tablet 20 mg PO QPM esomeprazole magnesium 40 mg capsule,delayed release(DR/EC) 40 mg PO DAILY gabapentin 300 mg capsule 300 mg PO DAILY lisinopril-hydrochlorothiazide 10-12.5 mg tablet 1 tab PO DAILY hyoscyamine sulfate [Oscimin] 0.125 mg tablet 0.25 mg PO QID PRN (Reason: epigatric/low sternal chest pain) Qty: 30 1RF Stand Alone Forms: [facility] Info Instructions
[2024-05-12 14:39] LABS: Troponin, Point-of-Care* 0.14 ng/ml (0.01-0.04)
[2024-05-12 14:59] LABS: Lipase* 58 U/L (23-300)
[2024-05-12 15:08] LABS: C Reactive Protein* < 0.5 mg/dL (0.5-1.0)
[2024-05-12 15:14] LABS: NT Pro B Type NatriureticPept* 402 pg/mL; Troponin I* 0.17 ng/mL (0.01-0.04)
[2024-05-12] MEDS: HYOSCYAMINE SULFATE 0.125 MG TAB SUBLINGUAL (16:02)
[2024-05-12] MEDS: GI COCKTAIL (VISC LIDO/ANTACID) 30 ML PO (16:02)
[2024-05-12] MEDS: FAMOTIDINE 10 MG/ML inj 20 MG IVP (16:02)
[2024-05-12 16:05] LABS: Albumin* 4.2 g/dL (3.3-5.0); Chloride* 100 mmol/L (96-114); Potassium* 4.1 mmol/L (3.6-5.1); Sodium* 136 mmol/L (135-149)
[2024-05-12 16:07] LABS: Creatinine* 0.7 mg/dL (0.5-1.5); Est. Creatinine Clearance* 46.43; Estimated Glomerular Filt Rate 92 ml/min
[2024-05-12 16:08] LABS: Alanine Aminotransferase* 20 U/L (4-35); Alkaline Phosphatase* 125 U/L (40-150); Anion Gap 7 mEq/L (7-15); Aspartate Amino Transferase* 21 U/L (12-35); Bilirubin Direct* 0.2 mg/dL (0.0-0.5); Bilirubin Total* 0.6 mg/dL (0.1-1.5); Blood Urea Nitrogen* 16 mg/dL (7-30); Calcium* 10.3 mg/dL (8.4-10.6); Carbon Dioxide* 29 mmol/L (20-32); Glucose* 115 mg/dL (60-115); Total Protein* 7.5 g/dL (6.0-8.3)
[2024-05-12 18:12] LABS: Troponin I* 0.19 ng/mL (0.01-0.04)
[2024-05-12 18:44] LABS: INR 0.95 (0.91-1.10); Prothrombin Time 13.3 Seconds
[2024-05-12 18:45] LABS: Partial Thromboplastin Time* 31 Seconds (23-33)
[2024-05-12] MEDS: HEPARIN 5,000 UNIT/0.5 ML INJ 4000 UNIT IVP (18:47)
[2024-05-12] MEDS: NITROGLYCERIN 0.4 MG TAB.SUBL SUBLINGUAL (18:49)
[2024-05-12] MEDS: HEPARIN 25,000 UNIT/500 ML BAG 20 UNIT IV (18:49)
[2024-05-12] MEDS: ASPIRIN 81 MG TAB.CHEW 324 MG PO (18:50)
[2024-05-12] MEDS: PRAMIPEXOLE 0.25 MG TABLET 0.5 MG PO (20:04)
[2024-05-12] MEDS: SIMVASTATIN 20 MG TABLET PO (20:04)
== END 2024-05-12 22:43 | disposition short-term general hospital (02) ==
PROVIDERS: Emergency Provider Family Medicine; PCP Student in an Organized Health Care Education/Training Program
DX: I21.4 Non-ST elevation (NSTEMI) myocardial infarction (principal)
CPT/HCPCS: 36415; 80048; 80076; 83690; 83880; 84484; 85610; 85730; 86140; 93005; 94761; 96374; 99285; 99291; 99292; A9270; J1644; S0028

== ENCOUNTER 2024-05-12 22:35 | Outpatient (CLI) | payer MEDICARE, SELFPAY | END 2024-05-12 22:36 | disposition home or self-care (01) | LOC: AMB 05-20 18:17 | PROVIDERS: PCP Student in an Organized Health Care Education/Training Program; Visit Provider Family Medicine | DX: I21.4 Non-ST elevation (NSTEMI) myocardial infarction (principal) | CPT/HCPCS: A0425; A0434 ==

== ENCOUNTER 2024-05-19 20:59 | Emergency (ER) | payer MEDICARE, SELFPAY ==
[2024-05-19 21:03] VITALS: BP 154/87; PULSE 77; RESP 16; TEMP 36.5; O2SAT 95; BMI 56.7
--- NOTE | 2024-05-19 21:16 | CRLHL7_ITS ---
For Patients: As a result of the Century Cures Act, medical imaging exams and procedure reports are released immediately into your electronic medical record. You may view this report before your referring provider. If you have questions, please contact your health care provider. INDICATION: Pain between shoulder blades after cardiac stent placement. TECHNIQUE: CT chest without contrast and CT chest, abdomen and pelvis acquired with 100 cc Omnipaque 350 IV contrast, dissection protocol. COMPARISON: None. FINDINGS: CHEST: Cardiovascular structures: The unenhanced images demonstrate no evidence of aortic intramural thrombus. Thoracic aorta is normal in caliber without evidence of dissection. Heart size is normal. Coronary artery calcifications/stenting. No central pulmonary embolism. Mediastinum and kirill: No mass or adenopathy. Lungs and pleura: Lungs are clear. No pleural effusions. Chest wall and axilla: No mass or adenopathy. Bones: Unremarkable for age. ABDOMEN AND PELVIS: Liver: Unremarkable. Gallbladder and bile ducts: Unremarkable. Pancreas: Unremarkable. Spleen: Unremarkable. Adrenal glands: Tiny 16 millimeter indeterminate left adrenal nodule. Kidneys: Tiny cortical hypodensities too small to characterize. No hydronephrosis. GI tract: No bowel obstruction. Colonic diverticulosis without diverticulitis.. Vascular structures: Aortoiliac arterial calcifications. Abdominal aorta is normal in caliber without evidence of dissection. Mesenteric arteries are patent. Lymph nodes: Unremarkable. Miscellaneous: Unremarkable. No free air or significant free fluid. Pelvic Organs: Unremarkable. Bones: Unremarkable for age. IMPRESSION: Limited evaluation secondary to body habitus. No acute intrathoracic or intra-abdominal/pelvic abnormality including aortic aneurysm or dissection as questioned. Tiny 16 millimeter indeterminate left adrenal gland nodule. Additional chronic findings as above. Please note that all CT scans at this facility use dose modulation, iterative reconstruction, and/or weight-based dosing when appropriate to reduce radiation dose to as low as reasonably achievable. Dictated by Kris Bazan MD @ 05/19/2024 11:02:39 PM (Electronically Signed)
--- NOTE | 2024-05-19 21:18 | ED_ITS ---
HPI - General Adult General Chief complaint: Unspecified Complaint, Adult Stated complaint: burning feeling between shoulder blades Time Seen by Provider: 05/19/24 21:07 Source: patient Mode of arrival: ambulatory Limitations: no limitations History of Present Illness HPI narrative: Patient is a 69-year-old female presenting to the department for upper back pain. She describes as a burning sensation that started abruptly at about 17:30. Says that she states has been gradually getting worse and she decided to come to the emergency department to be evaluated. She states she tried Tums at home without any improvement in her symptoms. Denies having symptoms like this before. Of note she had 4 stents placed 1 week ago at [place] for a NSTEMI. At that time she was having chest tightness. Denies fevers, chills, chest pain, shortness of breath, abdominal pain, headache, diarrhea, constipation, fevers, chills, weakness. No other concerns noted at this time. Related Data Home Medications ?Medication ?Instructions ?Recorded ?Confirmed lisinopril 5 mg tablet 5 mg PO QDAY 12/11/22 12/11/22 simvastatin 10 mg tablet 10 mg PO QDAY 12/11/22 05/22/23 acetaminophen 500 mg tablet 1,000 mg PO Q6H PRN 05/03/23 05/22/23 (Acetaminophen Extra Strength) aspirin 81 mg tablet,delayed 81 mg PO DAILY 05/03/23 05/22/23 release (Adult Aspirin Regimen) esomeprazole magnesium 40 mg 40 mg PO DAILY 05/03/23 05/22/23 capsule,delayed release gabapentin 300 mg capsule 300 mg PO DAILY 05/03/23 05/22/23 lisinopril 10 1 tab PO DAILY 05/03/23 05/22/23 mg-hydrochlorothiazide 12.5 mg tablet pramipexole 0.5 mg tablet 0.5 mg PO QPM 05/03/23 05/22/23 simvastatin 20 mg tablet 20 mg PO QPM 05/03/23 05/22/23 sucralfate 1 gram tablet 1 g PO QID 05/03/23 05/22/23 Previous Rx's ?Medication ?Instructions ?Recorded hyoscyamine sulfate 0.125 mg 0.25 mg (2 x 0.125 mg) PO QID PRN 12/23/23 tablet (Oscimin) epigatric/low sternal chest pain #30 tabs Allergies Allergy/AdvReac Type Severity Reaction Status Date / Time No Known Drug Allergies Allergy Verified 05/19/24 23:24 Review of Systems Status of ROS: Reports: 10 or more systems reviewed and unremarkable except as noted in History and below [facility] History Hiatal hernia ?K44.9 - Diaphragmatic hernia without obstruction or gangrene (ICD-10) Renal cyst, right ?N28.1 - Cyst of kidney, acquired (ICD-10) Anxiety ?F41.9 - Anxiety disorder, unspecified (ICD-10) TIFFANY (obstructive sleep apnea) ?G47.33 - Obstructive sleep apnea (adult) (pediatric) (ICD-10) Other and unspecified hyperlipidemia ?E78.5 - Hyperlipidemia, unspecified (ICD-10) Esophageal reflux ?K21.9 - Gastro-esophageal reflux disease without esophagitis (ICD-10) Unspecified essential hypertension ?I10 - Essential (primary) hypertension (ICD-10) Lump of skin ?R22.9 - Localized swelling, mass and lump, unspecified (ICD-10) Surgical History Hx of knee surgery ?Z98.890 - Other specified postprocedural states (ICD-10) History of shoulder surgery ?Z98.890 - Other specified postprocedural states (ICD-10) History of surgery on wrist ?Z98.890 - Other specified postprocedural states (ICD-10) Hx of wisdom tooth extraction ?K08.409 - Partial loss of teeth, unspecified cause, unspecified class (ICD- 10) History of carpal tunnel release ?Z98.890 - Other specified postprocedural states (ICD-10) Hx of breast biopsy ?Z98.890 - Other specified postprocedural states (ICD-10) Social History Smoking Status: Former smoker How often do you have a drink containing alcohol: never AUDIT-C Alcohol total score: 0 Non-prescribed substance use: denies use Caffeine: Yes service: No Exam Narrative: Exam Narrative: Const: Obese, in mild distress Eyes: PERRL, no conjunctival injection, and symmetrical lids HENT: Atraumatic external nose and ears. Moist mucous membranes. Neck: Symmetric, trachea midline, No thyromegaly. CVS: RRR, No murmurs or gallops. Peripheral pulses 2+ and equal in all extremit ies RESP: Unlabored respiratory effort. Clear to auscultation bilaterally. GI: Nontender/Nondistended, No rebound or guarding. MSK:Extremities w/o deformity, Normal Active ROM, palpation does not reproduce pain and back at about T5 level Skin: Warm, Dry. No rashes or lesions. Neuro: Normal Muscle tone, No focal neurological deficits. Psych: Awake, Alert, & Oriented x3. Appropriate mood and affect. Const: Vital Signs, click to edit/add: Vital Signs - 24 hr 05/19/24 21:03 05/19/24 21:27 05/19/24 22:30 Temperature 97.7 F Pulse Rate 72 72 Pulse Rate [Right Pulse Oximeter] 77 Respiratory Rate 16 14 16 Blood Pressure 139/75 148/90 H Blood Pressure [Ri ght Upper Arm] 154/87 H Pulse Oximetry 95 94 95 Oxygen Delivery Me thod Room Air Course Vital Signs Vital signs: Initial Vital Signs Temperature 97.7 F 05/19/24 21:03 Temperature Source Temporal Artery Scan 05/19/24 21:03 Pulse Rate 77 05/19/24 21:03 Pulse Rhythm Regular 05/19/24 21:03 Respiratory Rate 16 05/19/24 21:03 Blood Pressure 154/87 H 05/19/24 21:03 Blood Pressure Mean 109 H 05/19/24 21:03 Blood Pressure Position Sitting 05/19/24 21:03 Pulse Oximetry 95 05/19/24 21:03 Oxygen Delivery Method Room Air 05/19/24 21:03 Vital Signs Temperature 97.7 F 05/19/24 21:03 Pulse Rate 77 05/19/24 21:03 Respiratory Rate 16 05/19/24 21:03 Blood Pressure 154/87 H 05/19/24 21:03 Pulse Oximetry 95 05/19/24 21:03 Oxygen Delivery Method Room Air 05/19/24 21:03 Temperature 97.7 F 05/19/24 21:03 Pulse Rate 72 05/19/24 22:30 Respiratory Rate 16 05/19/24 22:30 Blood Pressure 148/90 H 05/19/24 22:30 Pulse Oximetry 95 05/19/24 22:30 Oxygen Delivery Method Room Air 05/19/24 21:03 Medical Decision Making [facility] Narrative Medical decision making narrative: Patient is a 69-year-old female presenting to emergency department for a burning sensation in her upper back between her shoulder blades. I do have some concern for aortic dissection at this time. The pain is in the correct area and she recently had 4 stents placed. A CTA chest abdomen pelvis dissection protocol was ordered. Her vital signs are otherwise stable at this time though and does not show any signs of impending demise. Will also order a CBC, CMP, magnesium, troponin, EKG. 20 care troponin was done and was in normal limits so patient was sent to his CTA of the chest abdomen and pelvis to check for dissection. Revision myself and not see any acute abnormalities and was waiting for the over read I a CBC was done showing no concerning abnormalities along with the BMP showing no concerning abnormalities. Point of care troponin was 0.02. EKG within normal limits. Patients pain has been improving on its own without any medication intervention. CTA results for showed no concerning abnormalities. I spoke to [facility] considering she just had the stents placed and they state concerning the pain is getting better, normal troponins, normal EKG, normal CTA they believe she is safe for discharge from a cardiology standpoint. Repeat troponin was 0.03 still within normal limits and patient will be discharged at this time. She is agreeable to this plan. Lab Data Labs: Lab Results 05/19/24 05/19/24 05/19/24 Range/Units 00:05 21:25 21:40 WBC 7.41 (4.50-11.00) K/uL RBC 4.23 (4.00-5.20) m/uL Hgb 11.9 L (12.0-16.0) gm/dL Hct 37.6 (33.0-51.0) % MCV 89 (80-100) fL MCH 28 (26-34) pg MCHC 32 (32-36) gm/dL RDW Coeff of Matt 12.6 (11.5-15.5) % Plt Count 247 (140-440) K/uL Neut % (Auto) 64.9 (42.0-72.0) % Lymph % (Auto) 23.8 (20-44) % [place] % (Auto) 8.9 (0.0-11.0) % Eos % (Auto) 1.8 (0.0-7.0) % Baso % (Auto) 0.5 (0.0-3.0) % Neut # (Auto) 4.81 (1.7-7.0) K/uL Lymph # (Auto) 1.76 (0.90-2.90) K/uL [place] # (Auto) 0.70 (0.00-0.90) K/UL Eos # (Auto) 0.13 (0.00-0.50) K/uL Baso # (Auto) 0.04 (0.00-0.30) K/uL Abs Immat Gran (auto) 0.01 (0.00-0.30) K/uL Imm/Tot Granulo (auto) 0.1 % Sodium 135 (135-149) mmol/L Potassium 4.0 (3.6-5.1) mmol/L Chloride 103 (96-114) mmol/L Carbon Dioxide 27 (20-32) mmol/L Anion Gap 5 L (7-15) mEq/L BUN 20 (7-30) mg/dL Creatinine 0.8 (0.5-1.5) mg/dL Estimated Creat Clear 46.43 Estimated GFR 79 ml/min Glucose 109 (60-115) mg/dL Calcium 9.2 (8.4-10.6) mg/dL Magnesium 1.9 (1.5-2.6) mg/dL Total Bilirubin 0.6 (0.1-1.5) mg/dL AST 20 (12-35) U/L ALT 19 (4-35) U/L Alkaline Phosphatase 98 (40-150) U/L Troponin I 0.02 (0.01-0.04) ng/mL Total Protein 6.9 (6.0-8.3) g/dL Albumin 4.0 (3.3-5.0) g/dL POC Creatinine 0.8 (0.6-1.3) mg/dl POC Troponin I 0.03 0.02 (0.01-0.04) ng/ml Imaging Data CTA chest abdomen pelvis: Attestation: I have reviewed the pertinent imaging results. Radiologist's impression: Limited evaluation secondary to body habitus. No acute intrathoracic or intra-abdominal/pelvic abnormality including aortic aneurysm or dissection as questioned. Tiny 16 millimeter indeterminate left adrenal gland nodule. Additional chronic findings as above. Please note that all CT scans at this facility use dose modulation, iterative reconstruction, and/or weight-based dosing when appropriate to reduce radiation dose to as low as reasonably achievable. Dictated by Kris Bazan MD @ 05/19/2024 11:02:39 PM ECG Data Attestation: I personally reviewed and interpreted this ECG as follows: Prior ECG tracings: available for review Interpretation: Normal sinus rhythm with a rate of 73 beats per minute, normal intervals, normal axis, no ST or T-wave abnormalities. Discharge Plan Discharge Clinical Impression: Back pain Qualifiers: Back pain location: thoracic back pain Chronicity: acute Back pain laterality: midline Qualified Code(s): M54.6 - Pain in thoracic spine Patient Disposition: Home, Self-Care Condition: Improved Instructions: Back Pain (ED) Additional Instructions: We cannot say for certain if this back pain was related to your recent stents are not but this time everything appears well. If pain returns it is reasonable to return for re-evaluation. Prescriptions: No Action lisinopril 5 mg tablet 5 mg PO QDAY simvastatin 10 mg tablet 10 mg PO QDAY acetaminophen [Acetaminophen Extra Strength] 500 mg tablet 1,000 mg PO Q6H PRN aspirin [Adult Aspirin Regimen] 81 mg tablet,delayed release (DR/EC) 81 mg PO DAILY sucralfate 1 gram tablet 1 g PO QID pramipexole 0.5 mg tablet 0.5 mg PO QPM simvastatin 20 mg tablet 20 mg PO QPM esomeprazole magnesium 40 mg capsule,delayed release(DR/EC) 40 mg PO DAILY gabapentin 300 mg capsule 300 mg PO DAILY lisinopril-hydrochlorothiazide 10-12.5 mg tablet 1 tab PO DAILY hyoscyamine sulfate [Oscimin] 0.125 mg tablet 0.25 mg PO QID PRN (Reason: epigatric/low sternal chest pain) Qty: 30 1RF Follow Up/Referrals: Deepa Perdue PA-C [Primary Care Provider] - Stand Alone Forms: [facility] Info Instructions
[2024-05-19 21:27] VITALS: BP 139/75; PULSE 72; RESP 14; O2SAT 94
[2024-05-19 21:37] LABS: Troponin, Point-of-Care* 0.02 ng/ml (0.01-0.04)
[2024-05-19 21:43] LABS: Creatinine, Point-of-Care* 0.8 mg/dl (0.6-1.3)
[2024-05-19 21:56] LABS: Basophils Absolute Auto 0.04 K/uL (0.00-0.30); Basophils Percent Auto 0.5 % (0.0-3.0); Eosinophils Absolute Auto 0.13 K/uL (0.00-0.50); Eosinophils Percent Auto 1.8 % (0.0-7.0); Hematocrit 37.6 % (33.0-51.0); Hemoglobin* 11.9 gm/dL (12.0-16.0); Immature Granulocytes Abs Auto 0.01 K/uL (0.00-0.30); Immature Granulocytes Pct Auto 0.1 %; Lymphocytes Absolute Auto 1.76 K/uL (0.90-2.90); Lymphocytes Percent Auto 23.8 % (20-44); Mean Corpuscular HGB Conc 32 gm/dL (32-36); Mean Corpuscular Hemoglobin 28 pg (26-34); Mean Corpuscular Volume 89 fL (80-100); Monocytes Percent Auto 8.9 % (0.0-11.0); Neutrophils Absolute Auto 4.81 K/uL (1.7-7.0); Neutrophils Percent Auto 64.9 % (42.0-72.0); Platelet Count* 247 K/uL (140-440); RDW Coefficient of Variation % 12.6 % (11.5-15.5); Red Blood Count 4.23 m/uL (4.00-5.20); White Blood Count* 7.41 K/uL (4.50-11.00)
[2024-05-19 22:01] LABS: Slide Review Reflex No
[2024-05-19 22:02] LABS: Chloride* 103 mmol/L (96-114); Sodium* 135 mmol/L (135-149)
[2024-05-19 22:04] LABS: Creatinine* 0.8 mg/dL (0.5-1.5); Est. Creatinine Clearance* 46.43; Estimated Glomerular Filt Rate 79 ml/min
[2024-05-19 22:05] LABS: Alanine Aminotransferase* 19 U/L (4-35); Alkaline Phosphatase* 98 U/L (40-150); Anion Gap 5 mEq/L (7-15); Aspartate Amino Transferase* 20 U/L (12-35); Bilirubin Total* 0.6 mg/dL (0.1-1.5); Blood Urea Nitrogen* 20 mg/dL (7-30); Calcium* 9.2 mg/dL (8.4-10.6); Carbon Dioxide* 27 mmol/L (20-32); Glucose* 109 mg/dL (60-115); Magnesium* 1.9 mg/dL (1.5-2.6); Total Protein* 6.9 g/dL (6.0-8.3)
[2024-05-19 22:17] LABS: Troponin I* 0.02 ng/mL (0.01-0.04)
[2024-05-19 22:30] VITALS: BP 148/90; PULSE 72; RESP 16; O2SAT 95
[2024-05-19 22:53] VITALS: BP 133/56; PULSE 71; RESP 16; O2SAT 95
[2024-05-19 23:10] VITALS: PULSE 72; RESP 14; O2SAT 95
[2024-05-20 00:17] LABS: Troponin, Point-of-Care* 0.03 ng/ml (0.01-0.04)
[2024-05-20 00:20] VITALS: BP 154/87; PULSE 77; RESP 14; TEMP 36.5
== END 2024-05-20 00:47 | disposition home or self-care (01) ==
PROVIDERS: Emergency Provider Student in an Organized Health Care Education/Training Program; PCP Student in an Organized Health Care Education/Training Program
DX: M54.6 Pain in thoracic spine (principal)
CPT/HCPCS: 36415; 71275; 74174; 80053; 82565; 83735; 84484; 85025; 93005; 99283; 99284; Q9967

== ENCOUNTER 2024-07-23 10:31 | Emergency (ER) | payer MEDICARE, SELFPAY ==
[2024-07-23 10:35] VITALS: BP 172/88; PULSE 67; RESP 20; TEMP 37.1; O2SAT 95; BMI 54.9
--- NOTE | 2024-07-23 11:23 | ED_ITS ---
HPI - General Adult General Chief complaint: Chest Pain Stated complaint: Chest pressure, high bp Time Seen by Provider: 07/23/24 10:51 History of Present Illness HPI narrative: This 69-year-old female comes in reporting some chest symptoms. She states that it began yesterday and is not actually a pain but a feeling of some mild pressure or tightness. She states that it comes and goes. She did have 4 stents placed 2 months ago and has been doing quite well since then. These symptoms today are not the same as symptoms she was having then. She does not report any nausea, vomiting, lightheadedness, shortness of breath, or diaphoresis. She does not have any exercise intolerance. She states that she has lost weight and is exercising and taking her current medications. She was concerned that her blood pressure was more elevated recently. She reports that she has been recording blood pressures typically with an average of 110 for systolic value. Today her blood pressure has been up around 160-170. Related Data Home Medications ?Medication ?Instructions ?Recorded ?Confirmed lisinopril 5 mg tablet 5 mg PO QDAY 12/11/22 12/11/22 simvastatin 10 mg tablet 10 mg PO QDAY 12/11/22 05/22/23 acetaminophen 500 mg tablet 1,000 mg PO Q6H PRN 05/03/23 07/23/24 (Acetaminophen Extra Strength) aspirin 81 mg tablet,delayed 81 mg PO DAILY 05/03/23 07/23/24 release (Adult Aspirin Regimen) esomeprazole magnesium 40 mg 40 mg PO DAILY 05/03/23 07/23/24 capsule,delayed release gabapentin 300 mg capsule 300 mg PO DAILY 05/03/23 07/23/24 lisinopril 10 1 tab PO DAILY 05/03/23 07/23/24 mg-hydrochlorothiazide 12.5 mg tablet pramipexole 0.5 mg tablet 0.5 mg PO QPM 05/03/23 07/23/24 simvastatin 20 mg tablet 20 mg PO QPM 05/03/23 05/22/23 sucralfate 1 gram tablet 1 g PO QID 05/03/23 05/22/23 carvedilol 6.25 mg tablet 6.25 mg PO BID 07/23/24 07/23/24 clopidogrel .ROUTE 07/23/24 nitroglycerin 0.4 mg sublingual mg sublingual 07/23/24 tablet rosuvastatin 20 mg tablet 20 mg PO QPM 07/23/24 07/23/24 Previous Rx's ?Medication ?Instructions ?Recorded hyoscyamine sulfate 0.125 mg 0.25 mg (2 x 0.125 mg) PO QID PRN 12/23/23 tablet (Oscimin) epigatric/low sternal chest pain #30 tabs Allergies Allergy/AdvReac Type Severity Reaction Status Date / Time No Known Drug Allergies Allergy Verified 05/19/24 23:24 Review of Systems Status of ROS: Reports: 10 or more systems reviewed and unremarkable except as noted in History and below Narrative: Constitutional: No fevers, no weight gain or loss. Eyes: No discharge. No vision changes. HENT: No congestion, no sore throat, no ear pain. Cardiovascular: No chest pain, no palpitations. Respiratory: No shortness of breath, no wheezes, no cough. Gastrointestinal: No abdominal pain, no vomiting, no diarrhea. Genitourinary: No dysuria, no hematuria. Musculoskeletal: Normal range of motion. Skin: No rashes, no pruritis. Neurological: No dizziness, weakness, sensory change, speech change. Endo/Heme/Allergies: No bruising or bleeding. No polydipsia. Pysch: no suicidality, no anxiety, no insomnia. All other systems reviewed and are negative. PFSH PFS Medical History Hiatal hernia ?K44.9 - Diaphragmatic hernia without obstruction or gangrene (ICD-10) Renal cyst, right ?N28.1 - Cyst of kidney, acquired (ICD-10) Anxiety ?F41.9 - Anxiety disorder, unspecified (ICD-10) TIFFANY (obstructive sleep apnea) ?G47.33 - Obstructive sleep apnea (adult) (pediatric) (ICD-10) Other and unspecified hyperlipidemia ?E78.5 - Hyperlipidemia, unspecified (ICD-10) Esophageal reflux ?K21.9 - Gastro-esophageal reflux disease without esophagitis (ICD-10) Unspecified essential hypertension ?I10 - Essential (primary) hypertension (ICD-10) Lump of skin ?R22.9 - Localized swelling, mass and lump, unspecified (ICD-10) Surgical History Hx of knee surgery ?Z98.890 - Other specified postprocedural states (ICD-10) History of shoulder surgery ?Z98.890 - Other specified postprocedural states (ICD-10) History of surgery on wrist ?Z98.890 - Other specified postprocedural states (ICD-10) Hx of wisdom tooth extraction ?K08.409 - Partial loss of teeth, unspecified cause, unspecified class (ICD- 10) History of carpal tunnel release ?Z98.890 - Other specified postprocedural states (ICD-10) Hx of breast biopsy ?Z98.890 - Other specified postprocedural states (ICD-10) Social History Smoking Status: Former smoker How often do you have a drink containing alcohol: never AUDIT-C Alcohol total score: 0 Non-prescribed substance use: denies use Caffeine: Yes service: No Exam Narrative: Exam Narrative: Constitutional: Well-developed, well-nourished, no acute distress. HEENT: Normocephalic, atraumatic. Neck: Normal range of motion. Nontender. Supple. Heart: Regular. No murmurs. Normal rate. Intact distal pulses. Lungs: Clear to auscultation. No chest discomfort. No wheezes, rhonchi, or rales. Abdomen: Normal bowel sounds. Nontender. No rebound tenderness. Genitalia: Deferred. Back: No midline tenderness. Normal range of motion. Extremities: Normal range of motion. No injury. Skin: Intact. No rash. Warm. No erythema or pallor. Neurologic: No altered sensation. No weakness. Alert and oriented. Psychiatric: No suicidality. No anxiety or depression. No insomnia. Nursing notes and vitals signs are reviewed. Const: Vital Signs, click to edit/add: Vital Signs - 24 hr 07/23/24 10:35 Temperature 98.8 F Pulse Rate [Left P ulse Oximeter] 67 Respiratory Rate 20 Blood Pressure [Ri ght Upper Arm] 172/88 H Pulse Oximetry 95 Oxygen Delivery Me thod Room Air Course Vital Signs Vital signs: Initial Vital Signs Temperature 98.8 F 07/23/24 10:35 Temperature Source Temporal Artery Scan 07/23/24 10:35 Pulse Rate 67 07/23/24 10:35 Pulse Rhythm Regular 07/23/24 10:35 Respiratory Rate 20 07/23/24 10:35 Blood Pressure 172/88 H 07/23/24 10:35 Blood Pressure Mean 116 H 07/23/24 10:35 Blood Pressure Position Semi-Fowlers 07/23/24 10:35 Pulse Oximetry 95 07/23/24 10:35 Oxygen Delivery Method Room Air 07/23/24 10:35 Vital Signs Temperature 98.8 F 07/23/24 10:35 Pulse Rate 07/23/24 10:35 Respiratory Rate 20 07/23/24 10:35 Blood Pressure 172/88 H 07/23/24 10:35 Pulse Oximetry 95 07/23/24 10:35 Oxygen Delivery Method Room Air 07/23/24 10:35 Temperature 98.8 F 07/23/24 10:35 Pulse Rate 07/23/24 10:35 Respiratory Rate 07/23/24 10:35 Blood Pressure 172/88 H 07/23/24 10:35 Pulse Oximetry 95 07/23/24 10:35 Oxygen Delivery Method Room Air 07/23/24 10:35 Medical Decision Making MDM Narrative Medical decision making narrative: This 69-year-old female comes in reporting some chest tightness or pressure but denies having pain. She did have 4 stents placed about 2 months ago and has been doing really well since then. She states these symptoms are different than what she had a couple months ago. EKG and labs today all returned with reassuring findings. Her troponin returns at 0. The patient tells me that she did fall about 3 days ago. She was holding onto a hand rail that buffered the fall. These symptoms started a day or so after this and may be suspicious for a chest wall injury. She is okay to be discharged home to continue current plans. I advised her to continue to check her blood pressure and follow-up with her doctor if an adjustment in her medication as needed. Lab Data Labs: Lab Results 07/23/24 Range/Units 11:34 WBC 5.52 (4.50-11.00) K/uL RBC 4.26 (4.00-5.20) m/uL Hgb 11.8 L (12.0-16.0) gm/dL Hct 37.9 (33.0-51.0) % MCV 89 (80-100) fL MCH 28 (26-34) pg MCHC 31 L (32-36) gm/dL RDW Coeff of Matt 13.2 (11.5-15.5) % Plt Count 198 (140-440) K/uL Neut % (Auto) 72.0 (42.0-72.0) % Lymph % (Auto) 18.1 L (20-44) % [place] % (Auto) 7.8 (0.0-11.0) % Eos % (Auto) 1.4 (0.0-7.0) % Baso % (Auto) 0.5 (0.0-3.0) % Neut # (Auto) 3.97 (1.7-7.0) K/uL Lymph # (Auto) 1.00 (0.90-2.90) K/uL [place] # (Auto) 0.40 (0.00-0.90) K/UL Eos # (Auto) 0.08 (0.00-0.50) K/uL Baso # (Auto) 0.03 (0.00-0.30) K/uL Abs Immat Gran (auto) 0.01 (0.00-0.30) K/uL Imm/Tot Granulo (auto) 0.2 % Sodium 139 (135-149) mmol/L Potassium 3.9 (3.6-5.1) mmol/L Chloride 103 (96-114) mmol/L Carbon Dioxide 30 (20-32) mmol/L Anion Gap 6 L (7-15) mEq/L BUN 14 (7-30) mg/dL Creatinine 0.7 (0.5-1.5) mg/dL Estimated Creat Clear 46.43 Estimated GFR 92 ml/min Glucose 109 (60-115) mg/dL Calcium 9.3 (8.4-10.6) mg/dL POC Troponin I 0.01 (0.01-0.04) ng/ml ECG Data Attestation: I personally reviewed and interpreted this ECG as follows: Interpretation: Normal sinus rhythm. Rate is 68 beats per minute. There are no ST or T-wave abnormalities. Discharge Plan Discharge Clinical Impression: Acute chest wall pain Patient Disposition: Home, Self-Care Condition: Stable Additional Instructions: Continue current plans. Recheck blood pressure regularly and follow up with primary physician for ongoing management. Return if worsening. Prescriptions: No Action lisinopril 5 mg tablet 5 mg PO QDAY simvastatin 10 mg tablet 10 mg PO QDAY acetaminophen [Acetaminophen Extra Strength] 500 mg tablet 1,000 mg PO Q6H PRN aspirin [Adult Aspirin Regimen] 81 mg tablet,delayed release (DR/EC) 81 mg PO DAILY sucralfate 1 gram tablet 1 g PO QID pramipexole 0.5 mg tablet 0.5 mg PO QPM simvastatin 20 mg tablet 20 mg PO QPM esomeprazole magnesium 40 mg capsule,delayed release(DR/EC) 40 mg PO DAILY gabapentin 300 mg capsule 300 mg PO DAILY lisinopril-hydrochlorothiazide 10-12.5 mg tablet 1 tab PO DAILY hyoscyamine sulfate [Oscimin] 0.125 mg tablet 0.25 mg PO QID PRN (Reason: epigatric/low sternal chest pain) Qty: 30 1RF carvedilol 6.25 mg tablet 6.25 mg PO BID nitroglycerin 0.4 mg tablet, sublingual sublingual rosuvastatin 20 mg tablet 20 mg PO QPM clopidogrel [Plavix] .ROUTE Follow Up/Referrals: Deepa Perdue PA-C [Primary Care Provider] - Stand Alone Forms: [employer] Info Instructions
[2024-07-23 11:42] LABS: Basophils Absolute Auto 0.03 K/uL (0.00-0.30); Basophils Percent Auto 0.5 % (0.0-3.0); Eosinophils Absolute Auto 0.08 K/uL (0.00-0.50); Eosinophils Percent Auto 1.4 % (0.0-7.0); Hematocrit 37.9 % (33.0-51.0); Hemoglobin* 11.8 gm/dL (12.0-16.0); Immature Granulocytes Abs Auto 0.01 K/uL (0.00-0.30); Immature Granulocytes Pct Auto 0.2 %; Lymphocytes Percent Auto 18.1 % (20-44); Mean Corpuscular HGB Conc 31 gm/dL (32-36); Mean Corpuscular Hemoglobin 28 pg (26-34); Mean Corpuscular Volume 89 fL (80-100); Monocytes Percent Auto 7.8 % (0.0-11.0); Neutrophils Absolute Auto 3.97 K/uL (1.7-7.0); Platelet Count* 198 K/uL (140-440); RDW Coefficient of Variation % 13.2 % (11.5-15.5); Red Blood Count 4.26 m/uL (4.00-5.20); White Blood Count* 5.52 K/uL (4.50-11.00)
[2024-07-23 11:48] LABS: Slide Review Reflex No
[2024-07-23 11:51] LABS: Troponin, Point-of-Care* 0.01 ng/ml (0.01-0.04)
[2024-07-23 12:00] LABS: Chloride* 103 mmol/L (96-114); Potassium* 3.9 mmol/L (3.6-5.1); Sodium* 139 mmol/L (135-149)
[2024-07-23 12:03] LABS: Anion Gap 6 mEq/L (7-15); Blood Urea Nitrogen* 14 mg/dL (7-30); Carbon Dioxide* 30 mmol/L (20-32); Creatinine* 0.7 mg/dL (0.5-1.5); Est. Creatinine Clearance* 46.43; Estimated Glomerular Filt Rate 92 ml/min
[2024-07-23 12:04] LABS: Calcium* 9.3 mg/dL (8.4-10.6); Glucose* 109 mg/dL (60-115)
== END 2024-07-23 13:30 | disposition home or self-care (01) ==
PROVIDERS: Emergency Provider Emergency Medicine Emergency Medical Services; PCP Student in an Organized Health Care Education/Training Program
DX: R07.89 Other chest pain (principal)
CPT/HCPCS: 36415; 80048; 84484; 85025; 93005; 99284

== ENCOUNTER 2024-12-31 08:40 | Outpatient (CLI) | payer MEDICARE, SELFPAY | END 2024-12-31 08:41 | disposition home or self-care (01) | LOC: NFLDREF 01-01 11:03 | PROVIDERS: PCP Student in an Organized Health Care Education/Training Program; Referring Provider Student in an Organized Health Care Education/Training Program; Visit Provider Internal Medicine | DX: I25.10 Atherosclerotic heart disease of native coronary artery without angina pectoris (principal); E78.5 Hyperlipidemia, unspecified | CPT/HCPCS: 80048; 80061; 80076; 83880 ==

== ENCOUNTER 2025-05-19 12:17 | Emergency (ER) | payer MEDICARE, SELFPAY ==
--- OUTSIDE RECORDS SUMMARY | 2022-06-24 19:00 | XMS_ITS | Continuity of Care Document ---
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 [address] [place] [address], [id number] , [place]. tel:[phone] [facility], [address] [address], [place], [place], [id number], [place] tel:[phone] [facility] No Information 2 Gregory Paul. [address] [place] [address], [id number] , [place]. tel:[phone] Family History Family Member Type Diagnosis Age At Onset No Information Immunizations Vaccine Date Status Comments SARS-COV-2 (COVID-19) vaccin e, mRNA, spike protein, LNP, preservative free, 30 mcg/0.3mL dose, christiana-sucrose formulation administered Note: [facility] bi- directional interface ; Source: Other Registry SARS-COV-2 (COVID-19) vaccin e, mRNA, spike protein, LNP, preservative free, 30 mcg/0.3mL dose administered Note: [facility] bi-direct ional interface ; Source: Other Registry influenza, seasonal vaccine, quadrivalent, adjuvanted, .5mL dose, preservative free administered Note: [facility] bi-di rectional interface ; Source: Other Registry SARS-COV-2 (COVID-19) vaccin e, mRNA, spike protein, LNP, preservative free, 30 mcg/0.3mL dose administered Note: [facility] bi-direct ional interface ; Source: Other Registry SARS-COV-2 (COVID-19) vaccin e, mRNA, spike protein, LNP, preservative free, 30 mcg/0.3mL dose administered Note: [facility] bi-direct ional interface ; Source: Other Registry Pneumovax 23 administered Note: [facility] bi-d irectional interface ; Source: Other Registry influenza, seasonal vaccine, quadrivalent, adjuvanted, .5mL dose, preservative free administered Note: [facility] bi-di rectional interface ; Source: Other Registry Seasonal trivalent influenza vaccine, adjuvanted, preservative free administered Note: [facility] bi-direct ional interface ; Source: Other Registry Seasonal trivalent influenza vaccine, adjuvanted, preservative free administered Note: [facility] bi-direct ional interface ; Source: Other Registry Prevnar 13 administered Note: [facility] bi-d irectional interface ; Source: Other Registry Afluria Qd administered Note: [facility] bi-directional interface ; Source: Other Registry Afluria Qd administered Note: [facility] bi-directional interface ; Source: Other Registry Afluria Qd administered Note: [facility] bi-directional interface ; Source: Other Registry Afluria Qd administered Note: [facility] bi-directional interface ; Source: Other Registry Influenza, seasonal, injecta ble, preservative free administered Note: [facility] bi-direct ional interface ; Source: Other Registry tetanus toxoid, reduced diphtheria toxoid, and acellular pertussis vaccine, adsorbed administered Note: [facility] b i-directional interface ; Source: Other Registry Influenza, seasonal, injectable administe red Note: [facility] bi- directional interface ; Source: Other Registry Influenza, seasonal, injecta ble, preservative free administered Note: [facility] bi-direct ional interface ; Source: Other Registry Influenza, seasonal, injectable administe red Note: [facility] bi- directional interface ; Source: Other Registry Payers Payer name Insurance type Covered alliance party ID Authoriza tion(s) No Information Social History Type Description Quantity Date Captured Comments Sex Female Smoking Status No Information Chief Complaint And Reason For Visit No Information Reason For Referral Reason For Referral No Information History Of Present Illness Encounter Date Complaint History Of Prese nt Illness No Information Functional Status Date Functional Assessmen t No Information Instructions Date Instruction Additional Infor mation No Information Assessments Type Assessment Date No Information Patient Care Teams Name Effective Dates (start - stop) Status Members No Information
[2025-05-19] VITALS (9 sets, daily range): BP systolic 179–180; BP diastolic 83–87; PULSE 64–68; RESP 15–21; TEMP 36.5; O2SAT 91–96; BMI 58.2
--- OUTSIDE RECORDS SUMMARY | 2025-05-19 12:19 | XMS_ITS | Clinical Summary ---
Author Organization [facility] Address [address] [place] [id number] Care Team Providers Care Identification Printing Machine Setter Name Role Phone Taylor Morrow DO Primary Care Provider [phone] Allergies No known active allergies Medications aspirin (ECOTRIN) 81 mg enteric coated tabletIndications: Essential hypertension Take 1 tablet by mouth once daily with a meal. 0 12/03/19 17 Active acetaminophen (TYLENOL EXTRA STRGTH) 500 mg tablet Take 1,000 mg by mouth every 6 hours if needed. 03/14/20 18 Active nitroglycerin (NITROSTAT) 0.4 mg sublingual tabletIndications: Coronary artery disease involving lumbee coronary artery without angina pectoris, unspecified whether lumbee or transplanted heart Place 1 Tablet (0.4 mg) under the tongue every 5 minutes if needed for Chest pain 1st choice (Hold if SBP less than 90 mmHg). Up to 3 tablets in 15 minutes. 30 Tablet 1 4 12:34 PM CDT 05/14/20 24 Active rosuvastatin (CRESTOR) 20 mg tabletIndications: Coronary artery disease involving lumbee coronary artery without angina pectoris, unspecified whether lumbee or transplanted heart Take 1 Tablet (20 mg) by mouth once daily with evening meal. 90 Tablet 3 06/16/20 24 Active lisinopriL (PRINIVIL; ZESTRIL) 20 mg tabletIndications: NSTEMI (non-ST elevated myocardial infarction) (HC),Essential hypertension,Prima ry hypertension Take 1 Tablet (20 mg) by mouth two times daily. 180 Tablet 3 10/20/20 24 Active ondansetron (ZOFRAN ODT) 4 mg disintegrating tabletIndications: Nausea Place 1 Tablet (4 mg) on the tongue every 8 hours if needed for Nausea/Vomiting . 15 Tablet 10/20/20 24 Active carvediloL (COREG) 12.5 mg tabletIndications: Essential hypertension Take 1 Tablet (12.5 mg) by mouth two times daily with meals. Please call [phone] 2 months in advance to schedule an office visit due in Oct 2025 180 Tablet 3 11/18/19 25 Active pramipexole (MIRAPEX) 0.5 mg tabletIndications: Restless legs syndrome (RLS) TAKE ONE TABLET BY MOUTH AT BEDTIME 90 Tablet 1 12/04/19 25 Active gabapentin 300 mg capsuleIndications :Restless leg syndrome TAKE ONE CAPSULE BY MOUTH AT BEDTIME NEEDED 90 Capsule 3 01/26/20 25 Active esomeprazole delayed release capsule 40 mgIndications:Van roesophageal reflux disease without esophagitis TAKE ONE CAPSULE BY MOUTH ONCE DAILY BEFORE A MEAL 90 Capsule 2 02/09/20 25 Active clopidogreL 75 mg tabletIndications: NSTEMI (non-ST elevated myocardial infarction) (HC),Coronary artery disease involving lumbee coronary artery without angina pectoris, unspecified whether lumbee or transplanted heart Take 1 Tablet (75 mg) by mouth once daily. Take daily for 1 year without interruption. You are due for your follow up Cardiology appointment in 07/2025. Further refills require an appointment. Please call [facility] at [phone] to schedule. 90 Tablet 05/10/20 25 Active clopidogreL (PLAVIX) 75 mg tabletIndications: NSTEMI (non-ST elevated myocardial infarction) (HC),Coronary artery disease involving lumbee coronary artery without angina pectoris, unspecified whether lumbee or transplanted heart Take 1 Tablet (75 mg) by mouth once daily. Take daily for 1 year without interruption. 90 Tablet 3 4 12:34 PM CDT 05/15/20 24 025 Discontin ued(Reord er (E-cancel not sent)) Active Problems Problem Noted Date Diagnosed Date Intractable migraine without aura and without status migrainosus 10/20/2024 Chest pain 05/13/2024 Hiatal hernia 06/14/2022 Anxiety 08/02/2021 Left adrenal mass 07/15/2019 Overview (06/14/2022): CT 2020: Stable 17 millimeter left adrenal nodule(compared to 2019), likely a benign lipid poor adenoma. Assessment & Plan (12/16/2023 12:53 PM BENDING MACHINE OPERATOR): Chart update only. DEE Jeffers .................... 12/16/2023 12:53 PM Renal cyst, right 07/15/2019 Routine adult health maintenance 06/03/2019 Overview (06/03/2019): Colonoscopy 05/2019 normal, repeat in 10 years TIFFANY: HST 09/03/2018 THOMAS-46 09/22/2018 Restless legs syndrome (RLS) 09/22/2018 Morbid obesity with BMI of 50.0-59.9, adult 11/2016 Assessment & Plan (12/16/2023 12:53 PM BENDING MACHINE OPERATOR): Chart update only. DEE Jeffers .................... 12/16/2023 12:53 PM Degeneration of lumbar or lumbosacral interverte bral disc 12/07/2010 Other and unspecified hyperlipidemia 05/17/2008 Overview (05/20/2009): LDL goal less than 130 healthcare maintenance 05/17/2008 Overview (05/17/2008): LMP menopause Last Pap 05/17/2008 - no h/o abnormal pap Last Mammo 05/21/07 Last Colonoscopy in [place] 2002 Last DEXA never Last Td 02/17/04 Unspecified essential hypertension 05/14/2007 Esophageal reflux 05/14/2007 Encounters Date Type Department Care Team Description 05/10/2025 Telephone [facility] [address] [facility] [address] [place] [address] Citlalli Berrios MD Medication Management 05/10/2025 Telephone [facility] [address] [facility] [address] [place] [address] Citlalli Berrios MD Refill Request (Clopidogrel) from Last 3 Months Immunizations Immunization Administration Dates Next Due AMB INFLUENZA IIV3 (AGE 65+ YRS) PF (Flu Clinic Only) 09/23/2019 AMB Influenza, IIV3 (Age >=3 years)(Flu Clinic Only) 08/25/2008 COVID-19 VACCINE SPIKEVAX (M ODERNA 50MCG/0.5ML) 12YO+ PFS 12/10/2023 COVID-19 vaccine (Pfizer-Bio NTech 30mcg/0.3mL) 12YO+ JOSE-SUCROSE PF, MDV 06/14/2022 COVID-19 vaccine (Pfizer-Bio NTech 30mcg/0.3mL) PF, MDV 08/02/2021,01/27/2021,01/06/2021 Influenza, IIV3 (Age >=3 years) 08/13/20 13,07/21/2012,07/19/2011,2010,10/13/2009 Influenza, IIV4 12/05/2017, 6,11/28/2015,2013 Influenza, Inactivated AIIV4 (Age 65+ Years) Preserv Free 08/08/2023,12/03/2022,08/02/2021,2019 Influenza, Inactivated IIV3 (Age 65+ Years) Preserv Free 08/06/2018 Pneumococcal Poly,23-Valent (Pneumovax) 07/28/2020 Pneumococcal conj 13-Valent (Prevnar 13) 08/06/2018 Td (Age >=7 Years) 02/17/2004 Tdap 07/25/2023,07/19/2011 Zoster (Shingrix-RZV, recombinant) 07/25/2023, Family History Medical History Relation Name Comments Heart Disease Father age 77 fr om [place] Cancer-breast Mother age 69 Heart Disease Mother age 69 CABG in her 50 's Cancer-ovarian No Family History Relation Name Status Comments Father Mother age 69 Social History Tobacco Use Types Packs/Day Years Used Date Smoking Tobacco: Former Cigarettes 0 05/14/1972 - 05/14/1975 Smokeless Tobacco: Never Tobacco Cessation:Counseling Given: Yes Alcohol Use Standard Drinks/Week Comments No 0 (1 standard drink = 0.6 oz pur e alcohol) PHQ-2 Answer Date Recorded PHQ-2 TOTAL SCORE 0 08/24/2024 Social Connections Answer Date Recorded Do you often feel lonely or isolated from those around you? 0 05/13/2024 Financial Resource Strain Answer Date R ecorded Difficulty of Paying Living Expenses 3 05/13/2024 Difficulty of Paying Living Expenses Not on file 05/13/2024 Food Insecurity Answer Date Recorded Do you worry your food will run out before you are able to buy more? 1 05/13/2024 Transportation Needs Answer Date Record ed Does lack of transportation keep you from medica l appointments? 1 05/13/2024 Does lack of transportation keep you from work, meetings or getting things that you need? 1 05/13/2024 Housing Stability Answer Date Recorded What is your housing situation today? 1 05/13/2024 Interpersonal Safety Answer Date Record ed Are you being hit, kicked, p ushed or yelled at (see row info)? No 05/13/2024 Interpersonal Safety Abuse 12 - 18 Not on file 05/13/2024 Interpersonal Safety Ambulatory Vulnerability No t on file 05/13/2024 Utilities Answer Date Recorded Do you have trouble paying f or utilities (for example, heat, electricity, water, phone)? 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 Not on file Not on file Not on file Obstetrics History Para Term AB IAB SAB Ectopic Multiple Livin g Live Births 2 2 2 0 0 0 0 0 0 2 Date Outcome GA Total Labor Labor/2nd/3rd Weight Sex Type Anes PTL Kristine A1 A5 Name Clin Term Term Last Filed Vital Signs Vital Sign Reading Time Taken Comments Blood Pressure 146/79 12/04/2024 10:06 AM BENDING MACHINE OPERATOR Pulse 67 11/25/2024 10:31 AM BENDING MACHINE OPERATOR Temperature 36.6 C (97.9 F) 05/14/2024 8:10 AM CDT Respiratory Rate 18 05/26/2024 4:00 PM CDT Oxygen Saturation 96% 11/25/2024 10: 31 AM BENDING MACHINE OPERATOR Inhaled Oxygen Concentration - - Weight 145.7 kg (321 lb 1.6 oz) 09/01/2024 9:23 AM CDT Height 165.1 cm (5' 5) 05/26/2024 4:00 PM CDT Body Mass Index 53.43 05/26/2024 4:00 PM CDT Plan of Treatment Health Maintenance Due Date Last Done Comments RSV vaccine for adults or (1 - Risk 60-74 years 1-dose series) 2013 DEXA/DXA scan for age 65+ 2018 Medicare Wellness for age 65+ 12/04/2023 12/03/2022, 08/02/2021, 07/28/2020 BMI (ht and wt on same day) for age 18+ 04/24/2024 04/24/2023, 12/03/2022, 06/14/2022, Additional history exists Mammogram for age 45-75 12/10/2024 12/10/19, 10/30/2022, 08/02/2021, Additional history exists COVID-19 vaccine series ( season) 2025 11/06/2024, 12/10/2023, 06/14/2022, Additional history exists Influenza Vaccine (#1) 2025 , 12/03/2022, 08/02/2021, Additional history exists Depression screening for age 12+ 08/24/2025 08/24/2024, 08/21/2024, 05/28/2024, Additional history exists Lipids for age 45-75 05/14/2029 05/14/2024, 12/10/2023, 06/14/2022, Additional history exists Colonoscopy through age 75 06/01/202906/01, 06/01/2019, 11/04/2002 Tetanus booster 07/25/2033 07/25/2023, 07/05, 02/17/2004 Hepatitis C screening for age 18-79 Completed 07/28/2020 Pneumococcal series for age 50+ Completed 07/28/2020, 08/06/2018 Zoster (shingles) series for age 50+ Completed 07/25/2023, 02/13/2023 Hepatitis B series for 19+ Aged Out N o longer eligible based on patient's age to complete this topic Procedures Procedure Name Priority Date/Time Associated Diagnosis Comments LIPID PANEL CONG 05/14/2024 6:43 AM CDT XR MAMMO JLUIS BILAT SCREEN Routine 12/10/2023 9:28 AM BENDING MACHINE OPERATOR Visit for screening mammogram ANTI HCV Routine 07/28/2020 8:59 AM CDT Need for hepatitis C screening test COLONOSCOPY DIAGNOSTIC Routine 06/01/2019 12:00 AM CDT Positive FIT (fecal immunochemical test) from Last 3 Months or Most Recently Relevant to Health Maintenance Results * LIPID PANEL (05/14/2024 6:43 AM CDT) CHOLESTEROL,TOTAL 144 100 - 199 mg/dL 05/14/2024 11:11 AM CDT [facility] Comment: Cholesterol, Total Reference Ranges Desirable <200 mg/dL Borderline 200-239 mg/dL High >=240 mg/dL TRIGLYCERIDES 128 <150 mg/dL 05/14/2024 11:11 AM CDT [facility] HDL CHOLESTEROL 48 >40 mg/dL 11:11 AM CDT [facility] NON-HDL CHOLESTEROL 96 <145 mg/dl 05/14/2024 11:11 AM CDT [facility] CHOL/HDL RATIO 3.00 <4.50 05/14/2024 11:11 AM CDT [facility] LDL CHOLESTEROL 70 <=130 mg/dL 05/14/2024 11:11 AM CDT [facility] VLDL CHOLESTEROL 26 <=30 mg/dL 05/14/20 11:11 AM CDT [facility] Blood BLOOD SPECIMEN / Unknown Venipuncture / Unknown 05/14/2024 6:43 AM CDT 05/14/2024 6:54 AM CDT Tasha Malinachico Kauffman RECYCLING TECH CHEMISTRY Final R esult [facility] [address] [place] [address], [place] * XR MAMMO JLUIS BILAT SCREEN (12/10/2023 9:28 AM BENDING MACHINE OPERATOR) Anatomical Region Laterality Modality BREASTS, Breast Left, Breast Right Bilateral Mammography Impressions 12/10/2023 3:17 PM BENDING MACHINE OPERATOR There is no radiographic evidence for malignancy. Recommend annual mammograms. MAMMOGRAM ASSESSMENT: ACR 1 Negative PATIENTS: You will also receive a letter with your examination results in an easy to read format. If you have questions about your results, please contact your referring provider. Narrative 12/10/2023 3:17 PM BENDING MACHINE OPERATOR For Patients: As a result of the Century Cures Act, medical imaging exams and procedure reports are released immediately into your electronic medical record. You may view this report before your referring provider. If you have questions, please contact your health care provider. XR MAMMO JLUIS BILAT SCREEN [[id number]] CLINICAL HISTORY: This is an asymptomatic 68 y.o. patient. INDICATION FOR EXAM: Mammogram Screening. TECHNIQUE: CC & MLO views were obtained. This study was evaluated with the assistance of Computer-Aided Detection. Breast Tomosynthesis was used in interpretation. COMPARISON FILM: [facility] FINDINGS: The breasts are almost entirely fatty. There are no dominant masses, suspicious micro calcifications or areas of architectural distortion. Deepa Perdue PA MAMMO Final Res ult * ANTI HCV (07/28/2020 8:59 AM CDT) HEPATITIS C ANTIBODY Non-React carla Non-React carla 07/28/2020 3:12 PM CDT [facility] Comment:Antibodies to HCV no t detected; does not exclude the possibility of exposure to HCV. Blood BLOOD SPECIMEN / Unknown Venipuncture / Unknown 07/28/2020 8:59 AM CDT 07/28/2020 8:59 AM CDT Stephanie Ramirez MD SEND OUTS Final Result [facility] [address] [place] [address], * COLONOSCOPY DIAGNOSTIC (06/01/2019 12:00 AM CDT) Stephanie Ramirez MD GI PROCEDURE ORD Final Result from Last 3 Months or Most Recently Relevant to Health Maintenance Insurance [employer] MEDICARE ADVANTAGE MEDICARE PART A HB ONLY [employer] Advance Directives * DNR (Latest Code Status on File) Date Activated Date Inactivated Comments 05/13/2024 12:47 AM 05/14/2024 6:55 PM Question Answer Comments Code Status Discussion: Reviewed Preferences * Full Code Date Activated Date Inactivated Comments 05/13/2024 12:14 AM 05/13/2024 12:47 AM Question Answer Comments Code Status Discussion: Reviewed Preferences * Full Code Date Activated Date Inactivated Comments 05/13/2024 12:14 AM 05/13/2024 12:14 AM Question Answer Comments Code Status Discussion: Reviewed Preferences * Full Code Date Activated Date Inactivated Comments 06/25/2022 7:10 AM 06/25/2022 3:28 PM Question Answer Comments Code Status Discussion: Unable to Assess Preferences, Provider to review later * Full Code Date Activated Date Inactivated Comments 01/16/2012 7:48 AM 01/16/2012 1:48 PM Care Teams Identification Printing Machine Setter Relationship Specialty Start Date End Date Taylor Morrow DO [address] [place] [address] PCP - General Family Practice 07/28/24
--- NOTE | 2025-05-19 12:32 | CRLHL7_ITS ---
For Patients: As a result of the Century Cures Act, medical imaging exams and procedure reports are released immediately into your electronic medical record. You may view this report before your referring provider. If you have questions, please contact your health care provider. INDICATION: Chest pain. TECHNIQUE: Chest radiograph, 1 view. COMPARISON: Chest radiograph 12/10/2021. FINDINGS: Cardiovascular/Mediastinum: Magnified heart size. Unremarkable. Lungs: Bilateral veil like haziness of the lung zones, likely due to overlying soft tissue. No focal consolidation. Mild pulmonary vascular congestion interstitial edema. Patchy right infrahilar opacification. Airways: Trachea remains midline. Pleura: No pleural effusions or pneumothorax. Bones: No acute osseous abnormalities. Or off of the proximal left humerus. Upper abdomen: Unremarkable. IMPRESSION: Mild pulmonary edema. Dictated by Yared Deras MD @ 05/19/2025 1:07:15 PM (Electronically Signed)
--- NOTE | 2025-05-19 12:42 | ED.CHESTPAIN ---
HPI - Chest Pain General Time Seen by Provider: 12:42 Date Seen: 05/19/25 Chief Complaint: Chest Pain Stated Complaint: Chest pain Time Seen by Provider: 05/19/25 12:25 Source: patient and RN notes reviewed Mode of arrival: ambulatory Limitations: no limitations History of Present Illness HPI narrative: This 70-year-old female is ambulatory into the ED with intermittent discomfort or pressure. She feels it in the inferior chest to the epigastric area. She does have a history cardiac disease, believes she had 4 stents placed last year with a non STEMI, was transferred to [facility]. Her heart attack happened in May of last year. There is strong family history of heart disease, patient has hypertension and hyperlipidemia, she is a nonsmoker. She is still on Plavix as well as an 81 mg aspirin daily. She has noted no palpitations or arrhythmia, no shortness of breath. This does feel potentially like heartburn with her hiatal hernia but she had similar symptoms with a heart attack last year. She had nausea last year. Maalox actually helped with her symptoms when she came in last year. It was bad enough around 11:40 a.m. that she tried nitroglycerin, did not help. She actually feels like it feels better with activity. There is no respiratory component, nonpleuritic per report. She has not been sick with anything, no cough or cold symptoms. She does feel upper bandlike discomfort with these symptoms. She has not had any abdominal surgery on questioning. She does not feel that she has had any change or increase in edema, the left like is always chronically swollen. She has been doing her treadmill daily without any change in status, goes up and down stairs to do her laundry without any difficulty. She states that this is not really a pain, more of a discomfort or pressure feeling. MD complaint: chest discomfort Related Data Home Medications ?Medication ?Instructions ?Recorded ?Confirmed acetaminophen 500 mg tablet 1,000 mg PO Q6H PRN 05/03/23 01/14/25 (Acetaminophen Extra Strength) aspirin 81 mg tablet,delayed 81 mg PO DAILY 05/03/23 01/14/25 release (Adult Aspirin Regimen) gabapentin 300 mg capsule 300 mg PO DAILY 05/03/23 05/19/25 pramipexole 0.5 mg tablet 0.5 mg PO QPM 05/03/23 05/19/25 carvedilol 6.25 mg tablet 6.25 mg PO BID 07/23/24 01/14/25 clopidogrel .Route 07/23/24 01/14/25 nitroglycerin 0.4 mg sublingual 0.4 mg sublingual PRN 07/23/24 01/14/25 tablet rosuvastatin 20 mg tablet 20 mg PO QPM 07/23/24 05/19/25 lisinopril 20 mg tablet 20 mg PO BID 10/08/24 05/19/25 esomeprazole magnesium 40 mg 40 mg PO DAILY 01/14/25 05/19/25 capsule,delayed release carvedilol 12.5 mg tablet 12.5 mg PO BID 05/19/25 05/19/25 clopidogrel 75 mg tablet 75 mg PO DAILY 05/19/25 05/19/25 Previous Rx's ?Medication ?Instructions ?Recorded sucralfate 1 gram tablet 1 g PO TID #90 tabs 05/19/25 Allergies Allergy/AdvReac Type Severity Reaction Status Date / Time No Known Drug Allergies Allergy Verified 05/19/25 12:36 Review of Systems Status of ROS Reports: 6 or more systems reviewed and unremarkable except as noted in History and below [facility] Medical History Hiatal hernia ?K44.9 - Diaphragmatic hernia without obstruction or gangrene (ICD-10) Renal cyst, right ?N28.1 - Cyst of kidney, acquired (ICD-10) Anxiety ?F41.9 - Anxiety disorder, unspecified (ICD-10) TIFFANY (obstructive sleep apnea) ?G47.33 - Obstructive sleep apnea (adult) (pediatric) (ICD-10) Other and unspecified hyperlipidemia ?E78.5 - Hyperlipidemia, unspecified (ICD-10) Esophageal reflux ?K21.9 - Gastro-esophageal reflux disease without esophagitis (ICD-10) Unspecified essential hypertension ?I10 - Essential (primary) hypertension (ICD-10) Lump of skin ?R22.9 - Localized swelling, mass and lump, unspecified (ICD-10) Surgical History Hx of knee surgery ?Z98.890 - Other specified postprocedural states (ICD-10) History of shoulder surgery ?Z98.890 - Other specified postprocedural states (ICD-10) History of surgery on wrist ?Z98.890 - Other specified postprocedural states (ICD-10) Hx of wisdom tooth extraction ?K08.409 - Partial loss of teeth, unspecified cause, unspecified class (ICD-10) History of carpal tunnel release ?Z98.890 - Other specified postprocedural states (ICD-10) Hx of breast biopsy ?Z98.890 - Other specified postprocedural states (ICD-10) Social History Smoking Status: Former smoker How often do you have a drink containing alcohol: never AUDIT-C Alcohol total score: 0 Non-prescribed substance use: denies use Caffeine: Yes service: No Exam Const Vital Signs, click to edit/add: Vital Signs - 24 hr 05/19/25 12:32 05/19/25 12:36 05/19/25 12:58 Temperature 97.7 F Pulse Rate 66 Pulse Rate [Pulse Oximeter] 68 Respiratory Rate 18 21 Blood Pressure Blood Pressure [Left Upper Arm] 180/83 H Pulse Oximetry 92 93 93 Oxygen Delivery Method Room Air 05/19/25 13:00 05/19/25 13:13 05/19/25 13:15 Temperature Pulse Rate 66 68 65 Pulse Rate [Pulse Oximeter] Respiratory Rate 18 Blood Pressure 179/87 H Blood Pressure [Left Upper Arm] Pulse Oximetry 96 91 94 Oxygen Delivery Method 05/19/25 13:30 05/19/25 13:45 05/19/25 14:00 Temperature Pulse Rate 64 65 66 Pulse Rate [Pulse Oximeter] Respiratory Rate 15 15 Blood Pressure Blood Pressure [Left Upper Arm] Pulse Oximetry 94 95 96 Oxygen Delivery Method This 70-year-old female is alert come in her no apparent distress. She was ambulatory into the ED. Sclera clear, extraocular movements intact, symmetrical facial function, able speak in complete sentences. Neck thick but I do not appreciate distension. Lungs are clear, she is able to sit up, good air entry, no wheezing or crackles, no tachypnea or accessory muscle use. Rate and rhythm are normal, no murmur, normal S1-S2. Abdomen is obese but soft, she does note that when I press in the epigastric area it does make her symptoms worse but there is certainly no rebound or guarding. Her body habitus makes detection of organomegaly difficult. She has chronic left lower extremity swelling but it is not pitting, no vascular changes noted of the skin. No pitting edema of the right lower extremity, calves are nontender. Documenting provider has reviewed patient's vital signs: yes Course Course ED Course: This 70-year-old female is having chest discomfort this certainly could be consistent with recurrent cardiac ischemic disease, this certainly could be intra-abdominal pathology or hiatal hernia complications/symptoms. Her symptoms have improved from earlier this morning, it is episodic. Will have her on pulse oximetry and cardiac monitoring to ensure no hypoxia or arrhythmia. Obtain EKG in full complement of labs including D-dimer and troponin. She understands that we will likely do a 3 hour troponin on her just to ensure no changing. She has had a history of some atypical features of presentation of her cardiac disease and understands that we will be considering this. Reevaluation(s) Time of Reevaluation #1: 14:00 Reevaluation #1: Did check on patient, she states she is feeling better right now. Sitting up on the edge of the bed. She has been taking her Nexium daily. She believes that she has had possible capsule endoscopy as well as a scope within the last few years. She talks about swallowing a small capsule, she believes she has had an EGD as well. She states she was told everything looked fine. We reviewed that her liver functions are normal, lipase was normal. I am less inclined to think this is any biliary disease at this time. D-dimer is still pending. She expresses concern about even going through the on closure of the CT scan. We did discuss that we would recommend CT imaging if the D-dimer is elevated. We will address that if it does come back elevated. She will need to follow-up troponin. I will touch base with Cardiology as well. Time of Reevaluation #2: 15:39 Reevaluation #2: Patient is asymptomatic at this time. Have reviewed that the follow-up troponin is normal. Did review my phone conversation with Dr. Loya in cardiology. Her daughter is requesting that we do the Lexiscan order through us. She is encouraged follow-up with her primary to discuss further issues with hiatal hernia, we discussed initiating sucralfate. We will keep her on the Nexium. We have discussed that we have ruled out acute heart attack but there is still the underlying possibility of angina. We will try to schedule the stress test as soon as possible but she understands if worsening symptoms or concerns that she will need to return. Consultations Consultation #1: Did speak with white kid buffer on-call through [facility], Dr. Loya. We did review the case. He was happy to hear that she was still taking her Plavix and aspirin. If she rules out here, he does think that she can discharge for outpatient stress test. Will also have her follow up with her primary to discuss further workup and evaluation for hiatal hernia. He will put a message into the system so that her white kid buffer that she has seen will know (Dr. Berrios). Time: 14:50 Vital Signs Vital signs: Initial Vital Signs Pulse Oximetry 92 05/19/25 12:32 Vital Signs Pulse Oximetry 92 05/19/25 12:32 Temperature 97.7 F 05/19/25 12:36 Pulse Rate 66 05/19/25 14:00 Respiratory Rate 15 05/19/25 14:00 Blood Pressure 179/87 H 05/19/25 13:13 Pulse Oximetry 96 05/19/25 14:00 Oxygen Delivery Method Room Air 05/19/25 12:36 MDM - Chest Pain Lab Data Attestation: I reviewed the patient's lab results. Labs: Lab Results 05/19/25 05/19/25 05/19/25 Range/Units 12:50 12:55 13:52 WBC 6.34 (4.50-11.00) K/uL RBC 4.24 (4.00-5.20) m/uL Hgb 11.7 L (12.0-16.0) gm/dL Hct 37.3 (33.0-51.0) % MCV 88 (80-100) fL MCH 28 (26-34) pg MCHC 31 L (32-36) gm/dL RDW Coeff of Matt 13.1 (11.5-15.5) % Plt Count 207 (140-440) K/uL Neut % (Auto) 72.9 H (42.0-72.0) % Lymph % (Auto) 17.7 L (20-44) % Jennings % (Auto) 7.9 (0.0-11.0) % Eos % (Auto) 0.8 (0.0-7.0) % Baso % (Auto) 0.5 (0.0-3.0) % Neut # (Auto) 4.60 (1.7-7.0) K/uL Lymph # (Auto) 1.10 (0.90-2.90) K/uL Jennings # (Auto) 0.50 (0.00-0.90) K/UL Eos # (Auto) 0.05 (0.00-0.50) K/uL Baso # (Auto) 0.03 (0.00-0.30) K/uL Abs Immat Gran (auto) 0.01 (0.00-0.30) K/uL Imm/Tot Granulo (auto) 0.2 % D-Dimer Quant (PE/DVT) 0.31 (0.00-0.50) ug/ml Sodium 139 (135-149) mmol/L Potassium 3.7 (3.6-5.1) mmol/L Chloride 103 (96-114) mmol/L Carbon Dioxide 33 H (20-32) mmol/L Anion Gap 3 L (7-15) mEq/L BUN 17 (7-30) mg/dL Creatinine 0.6 (0.5-1.5) mg/dL Estimated Creat Clear 45.76 Estimated GFR 95 ml/min Glucose 103 (60-115) mg/dL Lactate 0.5 (0.5-1.9) mmol/L Calcium 9.2 (8.4-10.6) mg/dL Total Bilirubin 0.7 (0.1-1.5) mg/dL Direct Bilirubin 0.0 (0.0-0.5) mg/dL AST 20 (12-35) U/L ALT 17 (4-35) U/L Alkaline Phosphatase 88 (40-150) U/L Troponin I < 0.01 (0.01-0.04) ng/mL C-Reactive Protein < 0.5 L (0.5-1.0) mg/dL NT-Pro-B Natriuret Pep 203 (See Note) pg/mL Total Protein 6.8 (6.0-8.3) g/dL Albumin 3.8 (3.3-5.0) g/dL Lipase 35 (23-300) U/L Lab Acknowledgement Test Added POC Troponin I 0.00 L (0.01-0.04) ng/ml 05/19/25 Range/Units 14:40 WBC (4.50-11.00) K/uL RBC (4.00-5.20) m/uL Hgb (12.0-16.0) gm/dL Hct (33.0-51.0) % MCV (80-100) fL MCH (26-34) pg MCHC (32-36) gm/dL RDW Coeff of Matt (11.5-15.5) % Plt Count (140-440) K/uL Neut % (Auto) (42.0-72.0) % Lymph % (Auto) (20-44) % Jennings % (Auto) (0.0-11.0) % Eos % (Auto) (0.0-7.0) % Baso % (Auto) (0.0-3.0) % Neut # (Auto) (1.7-7.0) K/uL Lymph # (Auto) (0.90-2.90) K/uL Jennings # (Auto) (0.00-0.90) K/UL Eos # (Auto) (0.00-0.50) K/uL Baso # (Auto) (0.00-0.30) K/uL Abs Immat Gran (auto) (0.00-0.30) K/uL Imm/Tot Granulo (auto) % D-Dimer Quant (PE/DVT) (0.00-0.50) ug/ml Sodium (135-149) mmol/L Potassium (3.6-5.1) mmol/L Chloride (96-114) mmol/L Carbon Dioxide (20-32) mmol/L Anion Gap (7-15) mEq/L BUN (7-30) mg/dL Creatinine (0.5-1.5) mg/dL Estimated Creat Clear Estimated GFR ml/min Glucose (60-115) mg/dL Lactate (0.5-1.9) mmol/L Calcium (8.4-10.6) mg/dL Total Bilirubin (0.1-1.5) mg/dL Direct Bilirubin (0.0-0.5) mg/dL AST (12-35) U/L ALT (4-35) U/L Alkaline Phosphatase (40-150) U/L Troponin I (0.01-0.04) ng/mL C-Reactive Protein (0.5-1.0) mg/dL NT-Pro-B Natriuret Pep (See Note) pg/mL Total Protein (6.0-8.3) g/dL Albumin (3.3-5.0) g/dL Lipase (23-300) U/L Lab Acknowledgement POC Troponin I 0.00 L (0.01-0.04) ng/ml Imaging Data Chest x-ray: Attestation: I have reviewed the pertinent imaging results. My impression: Feel there is poor penetration. Patient body habitus certainly may make a portable chest x-ray difficult. Clinically and in conjunction with her proBNP, there is no symptomatology of CHF. Radiologist's impression: Patient: RAYSHAWN D ASILVA Facility:?[facility] Patient ID:?[id number] Site Patient ID:?[id number]. Site :?[id number] Study:?XRay-Chest 1V-05/19/2025 12:57:30 PM Ordering Physician:Anil Pierre Final Report: INDICATION: Chest pain. TECHNIQUE: Chest radiograph, 1 view. COMPARISON: Chest radiograph 12/10/2021. FINDINGS: Cardiovascular/Mediastinum: Magnified heart size. Unremarkable. Lungs: Bilateral veil like haziness of the lung zones, likely due to overlying soft tissue. No focal consolidation. Mild pulmonary vascular congestion interstitial edema. Patchy right infrahilar opacification. Airways: Trachea remains midline. Pleura: No pleural effusions or pneumothorax. Bones: No acute osseous abnormalities. Or off of the proximal left humerus. Upper abdomen: Unremarkable. IMPRESSION: Mild pulmonary edema. Dictated by Yared Deras MD @ 05/19/2025 1:07:15 PM (Electronic Signature) ECG Data Attestation: I personally reviewed and interpreted this ECG as follows: (Normal sinus rhythm, 67 beats per minute. Q-waves with flipped T-waves V1 V2 without any ST segment change. Does not seem to be significantly changed from prior EKGs.) ECG interpretation date: 05/19/25 ECG interpretation time: 13:08 Prior ECG tracings: available for review Discharge Plan Discharge Clinical Impression: Hernia, hiatal Chest pain Qualifiers: Chest pain type: unspecified Qualified Code(s): R07.9 - Chest pain, unspecified Patient Disposition: Home, Self-Care Condition: Stable Instructions: Chest Pain (ED), Hiatal Hernia (ED) Additional Instructions: We have ordered a Lexiscan stress test in will contact you when this has been approved and scheduled. You also need to follow-up with your primary care provider as soon as possible to discuss hiatal hernia and further management. Start the sucralfate and take as prescribed. Have ordered it 3 times a day but technically certainly can be taken up to 4 times a day if needed. Do stay on your other medications. If you have concerns of worsening, further concerns that this might be cardiac disease, please return for further evaluation. Activity Level: Activity as Tolerated Prescriptions: New sucralfate 1 gram tablet 1 g PO TID Qty: 90 0RF No Action lisinopril 20 mg tablet 20 mg PO BID acetaminophen [Acetaminophen Extra Strength] 500 mg tablet 1,000 mg PO Q6H PRN aspirin [Adult Aspirin Regimen] 81 mg tablet,delayed release (DR/EC) 81 mg PO DAILY pramipexole 0.5 mg tablet 0.5 mg PO QPM gabapentin 300 mg capsule 300 mg PO DAILY esomeprazole magnesium 40 mg capsule,delayed release(DR/EC) 40 mg PO DAILY carvedilol 12.5 mg tablet 12.5 mg PO BID clopidogrel 75 mg tablet 75 mg PO DAILY carvedilol 6.25 mg tablet 6.25 mg PO BID nitroglycerin 0.4 mg tablet, sublingual 0.4 mg sublingual PRN rosuvastatin 20 mg tablet 20 mg PO QPM clopidogrel [Plavix] .Route Follow Up/Referrals: Deepa Perdue PA-C [Referring, Family Practice] Stand Alone Forms: [employer] Info Instructions
[2025-05-19 13:06] LABS: Lactate* 0.5 mmol/L (0.5-1.9)
[2025-05-19 13:10] LABS: Hematocrit* 37.3 % (33.0-51.0); Hemoglobin* 11.7 gm/dL (12.0-16.0); Immature Granulocytes Abs Auto 0.01 K/uL (0.00-0.30); Immature Granulocytes Pct Auto 0.2 %; Mean Corpuscular HGB Conc 31 gm/dL (32-36); Mean Corpuscular Hemoglobin 28 pg (26-34); Mean Corpuscular Volume 88 fL (80-100); RDW Coefficient of Variation % 13.1 % (11.5-15.5); Red Blood Count* 4.24 m/uL (4.00-5.20); White Blood Count* 6.34 K/uL (4.50-11.00)
[2025-05-19 13:12] LABS: Lymphocytes Absolute Auto 1.10 K/uL (0.90-2.90); Slide Review Reflex No
[2025-05-19 13:16] LABS: Troponin, Point-of-Care* 0.00 ng/ml (0.01-0.04)
[2025-05-19 13:23] LABS: Albumin* 3.8 g/dL (3.3-5.0); Chloride* 103 mmol/L (96-114); Potassium* 3.7 mmol/L (3.6-5.1); Sodium* 139 mmol/L (135-149)
[2025-05-19 13:25] LABS: Blood Urea Nitrogen* 17 mg/dL (7-30); Creatinine* 0.6 mg/dL (0.5-1.5); Est. Creatinine Clearance* 45.76; Estimated Glomerular Filt Rate 95 ml/min
[2025-05-19 13:26] LABS: Alanine Aminotransferase* 17 U/L (4-35); Alkaline Phosphatase* 88 U/L (40-150); Anion Gap 3 mEq/L (7-15); Aspartate Amino Transferase* 20 U/L (12-35); Bilirubin Direct* 0.0 mg/dL (0.0-0.5); Bilirubin Total* 0.7 mg/dL (0.1-1.5); Calcium* 9.2 mg/dL (8.4-10.6); Carbon Dioxide* 33 mmol/L (20-32); Glucose* 103 mg/dL (60-115); Total Protein* 6.8 g/dL (6.0-8.3)
[2025-05-19 13:38] LABS: NT Pro B Type NatriureticPept* 203 pg/mL (See Note)
[2025-05-19 14:20] LABS: D Dimer Quantitative* 0.31 ug/ml (0.00-0.50)
[2025-05-19 15:02] LABS: Troponin, Point-of-Care* 0.00 ng/ml (0.01-0.04)
== END 2025-05-19 16:25 | disposition home or self-care (01) ==
PROVIDERS: Emergency Provider Family Medicine; PCP Family Medicine
DX: K44.9 Diaphragmatic hernia without obstruction or gangrene (principal); R07.9 Chest pain, unspecified; R60.9 Edema, unspecified; Z95.5 Presence of coronary angioplasty implant and graft; Z87.891 Personal history of nicotine dependence
CPT/HCPCS: 36415; 71045; 80053; 82248; 83605; 83690; 83880; 84484; 85025; 85379; 86140; 93005; 94761; 96374; 96375; 99284; 99285

== ENCOUNTER 2025-07-22 13:04 | Emergency (ER) | payer MEDICARE, SELFPAY ==
[2025-07-22] VITALS (14 sets, daily range): BP systolic 180–220; BP diastolic 74–111; PULSE 67–78; RESP 11–27; TEMP 36.4; O2SAT 93–95; BMI 58.0
--- OUTSIDE RECORDS SUMMARY | 2025-07-22 13:09 | XMS_ITS | Clinical Summary ---
Author Organization [facility] Address [address] [place] [id number] Care Team Providers Care Fighter Pilot Name Role Phone Taylor Morrow DO Primary Care Provider [phone] Allergies No known active allergies Medications aspirin (ECOTRIN) 81 mg enteric coated tabletIndications: Essential hypertension Take 1 tablet by mouth once daily with a meal. 0 12/03/19 17 Active acetaminophen (TYLENOL EXTRA STRGTH) 500 mg tablet Take 1,000 mg by mouth every 6 hours if needed. 03/14/20 18 Active nitroglycerin (NITROSTAT) 0.4 mg sublingual tabletIndications: Coronary artery disease involving [place] coronary artery without angina pectoris, unspecified whether [place] or transplanted heart Place 1 Tablet (0.4 mg) under the tongue every 5 minutes if needed for Chest pain 1st choice (Hold if SBP less than 90 mmHg). Up to 3 tablets in 15 minutes. 30 Tablet 1 4 12:34 PM CDT 05/14/20 24 Active ondansetron (ZOFRAN ODT) 4 mg disintegrating tabletIndications: Nausea Place 1 Tablet (4 mg) on the tongue every 8 hours if needed for Nausea/Vomiting . 15 Tablet 10/20/20 24 Active carvediloL (COREG) 12.5 mg tabletIndications: Essential hypertension Take 1 Tablet (12.5 mg) by mouth two times daily with meals. Please call [phone] 2 months in advance to schedule an office visit due in Oct 2025 180 Tablet 3 11/18/19 25 Active gabapentin 300 mg capsuleIndications :Restless leg syndrome TAKE ONE CAPSULE BY MOUTH AT BEDTIME NEEDED 90 Capsule 3 01/26/20 25 Active esomeprazole delayed release capsule 40 mgIndications:Van roesophageal reflux disease without esophagitis TAKE ONE CAPSULE BY MOUTH ONCE DAILY BEFORE A MEAL 90 Capsule 2 02/09/20 25 Active clopidogreL 75 mg tabletIndications: NSTEMI (non-ST elevated myocardial infarction) (HC),Coronary artery disease involving wich[place] coronary artery without angina pectoris, unspecified whether w[place] or transplanted heart Take 1 Tablet (75 mg) by mouth once daily. Take daily for 1 year without interruption. You are due for your follow up Cardiology appointment in 07/2025. Further refills require an appointment. Please call [facility] at [phone] to schedule. 90 Tablet 05/10/20 25 Active pramipexole (MIRAPEX) 0.5 mg tabletIndications: Restless legs syndrome (RLS) Take 1 Tablet (0.5 mg) by mouth at bedtime. 90 Tablet 3 07/14/20 25 Active rosuvastatin (CRESTOR) 20 mg tabletIndications: Coronary artery disease involving wich[place] coronary artery without angina pectoris, unspecified whether w[place] or transplanted heart Take 1 Tablet (20 mg) by mouth once daily with evening meal. 90 Tablet 3 07/14/20 25 Active lisinopriL (PRINIVIL; ZESTRIL) 20 mg tabletIndications: NSTEMI (non-ST elevated myocardial infarction) (HC),Essential hypertension,Prima ry hypertension Take 1 Tablet (20 mg) by mouth two times daily. 180 Tablet 3 07/14/20 25 Active sucralfate (CARAFATE) 1 gram tabletIndications: heartburn Take 1 Tablet (1 g) by mouth four times daily before meals and at bedtime. 360 Tablet 3 07/14/20 25 Active rosuvastatin (CRESTOR) 20 mg tabletIndications: Coronary artery disease involving wich[place] coronary artery without angina pectoris, unspecified whether wichita or transplanted heart Take 1 Tablet (20 mg) by mouth once daily with evening meal. 90 Tablet 3 06/16/20 24 025 Discontin ued(Reord er (E-cancel not sent)) lisinopriL (PRINIVIL; ZESTRIL) 20 mg tabletIndications: NSTEMI (non-ST elevated myocardial infarction) (HC),Essential hypertension,Prima ry hypertension Take 1 Tablet (20 mg) by mouth two times daily. 180 Tablet 3 10/20/20 24 025 Discontin ued(Reord er (E-cancel not sent)) pramipexole (MIRAPEX) 0.5 mg tabletIndications: Restless legs syndrome (RLS) Take 1 Tablet (0.5 mg) by mouth at bedtime. 60 Tablet 06/07/20 25 025 Discontin ued(Reord er (E-cancel not sent)) rosuvastatin (CRESTOR) 20 mg tabletIndications: Coronary artery disease involving w[place] coronary artery without angina pectoris, unspecified whether w[place] or transplanted heart Take 1 Tablet (20 mg) by mouth once daily with evening meal. 90 Tablet 07/07/20 25 025 Discontin ued(Reord er (E-cancel not sent)) sucralfate (CARAFATE) 1 gram tabletIndications: heartburn Take 1 g by mouth four times daily before meals and at bedtime. 05/19/20 25 025 Discontin ued(Reord er (E-cancel not sent)) Active Problems Problem Noted Date Diagnosed Date Intractable migraine without aura and without status migrainosus 10/20/2024 Chest pain 05/13/2024 Hiatal hernia 06/14/2022 Anxiety 08/02/2021 Left adrenal mass 07/15/2019 Overview (06/14/2022): CT 2020: Stable 17 millimeter left adrenal nodule(compared to 2019), likely a benign lipid poor adenoma. Assessment & Plan (12/16/2023 12:53 PM COMMUNITY HEALTH NURSE SUPERVISOR): Chart update only. DEE Jeffers .................... 12/16/2023 12:53 PM Renal cyst, right 07/15/2019 Routine adult health maintenance 06/03/2019 Overview (06/03/2019): Colonoscopy 05/2019 normal, repeat in 10 years TIFFANY: HST 09/03/2018 THOMAS-46 09/22/2018 Restless legs syndrome (RLS) 09/22/2018 Morbid obesity with BMI of 50.0-59.9, adult 11/2016 Assessment & Plan (12/16/2023 12:53 PM COMMUNITY HEALTH NURSE SUPERVISOR): Chart update only. DEE Jeffers .................... 12/16/2023 12:53 PM Degeneration of lumbar or lumbosacral interverte bral disc 12/07/2010 Other and unspecified hyperlipidemia 05/17/2008 Overview (05/20/2009): LDL goal less than 130 healthcare maintenance 05/17/2008 Overview (05/17/2008): LMP menopause Last Pap 05/17/2008 - no h/o abnormal pap Last Mammo 05/21/07 Last Colonoscopy in [place] 2002 Last DEXA never Last Td 02/17/04 Unspecified essential hypertension 05/14/2007 Esophageal reflux 05/14/2007 Encounters Date Type Department Care Team Description 07/14/2025 8:30 AM CDT Office Visit [facility] [address] [place] [address] Taylor Morrow, DO Medicare ANNUAL (subsequent) Visit (70 year old female); Medication Management (Review, renew); Abdominal Pain (Causing nausea? ) 07/14/2025 Travel 07/09/2025 Travel 07/06/2025 Refill [facility] [address] [place] [address] Taylor Morrow, DO Refill Request; ROSUVASTATIN 06/04/2025 Refill [facility] [address] [place] [address] Taylor Morrow, DO Refill Request (Pramipexole) 05/19/2025 Orders Only [facility] Scanner 1 scan: (1-Ord) [facility], XR CHEST 1V, 05/19/2025 05/19/2025 Telephone [facility] [address] [place] [address] Sánchez Loya MD 05/10/2025 Telephone [facility] [address] [facility] [address] [place] [phone] Citlalli Berrios MD Medication Management 05/10/2025 Telephone [facility] [address] [facility] [address] [place] [phone] Citlalli Berrios MD Refill Request (Clopidogrel) from Last 3 Months Immunizations Immunization Administration Dates Next Due AMB INFLUENZA IIV3 (AGE 65+ YRS) PF (Flu Clinic Only) 09/23/2019 AMB Influenza, IIV3 (Age >=3 years)(Flu Clinic Only) 08/25/2008 COVID-19 VACCINE SPIKEVAX (M ODERNA 50MCG/0.5ML) 12YO+ PFS 12/10/2023 COVID-19 vaccine (H[employer] NTech 30mcg/0.3mL) 12YO+ JOSE-SUCROSE PF, MDV 06/14/2022 COVID-19 vaccine (Hedge[employer] NTech 30mcg/0.3mL) PF, MDV 08/02/2021,01/27/2021,01/06/2021 Influenza, IIV3 (Age >=3 years) 08/13/20 13,07/21/2012,07/19/2011,12/07,10/13/2009 Influenza, IIV4 12/05/2017, 6,11/28/2015,09/21 Influenza, Inactivated AIIV4 (Age 65+ Years) Preserv Free 08/08/2023,12/03/2022,08/02/2021,07/28 Influenza, Inactivated IIV3 (Age 65+ Years) Preserv Free 07/14/2025,11/06/2024,08/06/2018 Pneumococcal Poly,23-Valent (Pneumovax) 07/28/2020 Pneumococcal conj 13-Valent (Prevnar 13) 08/06/2018 RSV, Recombinant ADJ Reconst ituted (Arexvy 120MCG/0.5mL) 12/03/2024 Td (Age >=7 Years) 02/17/2004 Tdap 07/25/2023,07/19/2011 Zoster (Shingrix-RZV, recombinant) 07/25/2023, Family History Medical History Relation Name Comments Heart Disease Father age 77 fr om [place] Cancer-breast Mother age 69 Heart Disease Mother [...] Answer Date Recorded PHQ-2 TOTAL SCORE 0 07/14/2025 Social Connections Answer Date Recorded Do you often feel lonely or isolated from those around you? 0 07/09/2025 Financial Resource Strain Answer Date R ecorded Difficulty of Paying Living Expenses 3 07/09/2025 Difficulty of Paying Living Expenses Not on file 07/09/2025 Food Insecurity Answer Date Recorded Do you worry your food will run out before you are able to buy more? 1 07/09/2025 Transportation Needs Answer Date Record ed Does lack of transportation keep you from medica l appointments? 1 07/09/2025 Does lack of transportation keep you from work, meetings or getting things that you need? 1 07/09/2025 Housing Stability Answer Date Recorded What is your housing situation today? 1 07/09/2025 Interpersonal Safety Answer Date Record ed Are you being hit, kicked, p ushed or yelled at (see row info)? No 05/13/2024 Interpersonal Safety Abuse 12 - 18 Not on file 05/13/2024 Interpersonal Safety Ambulatory Vulnerability No t on file 05/13/2024 Utilities Answer Date Recorded Do you have trouble paying f or utilities (for example, heat, electricity, water, phone)? 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 Not on file Not on file Not on file Obstetrics History Para Term AB IAB SAB Ectopic Multiple Livin g Live Births 2 2 2 0 0 0 0 0 0 2 Date Outcome GA Total Labor Labor/2nd/3rd Weight Sex Type Anes PTL Kristine A1 A5 Name Clin Term Term Last Filed Vital Signs Vital Sign Reading Time Taken Comments Blood Pressure 156/86 07/14/2025 9:34 AM CDT Pulse 66 07/14/2025 8:46 AM CDT Temperature 36.6 C (97.9 F) 05/14/2024 8:10 AM CDT Respiratory Rate 18 05/26/2024 4:00 PM CDT Oxygen Saturation 96% 07/14/2025 8:46 AM CDT Inhaled Oxygen Concentration - - Weight 153.7 kg (338 lb 14.4 oz) 07/14/2025 8:46 AM CDT Height 165 cm (5' 4.96) 07/14/2025 8:46 AM CDT Body Mass Index 56.46 07/14/2025 8:46 AM CDT Plan of Treatment Health Maintenance Due Date Last Done Comments Mammogram for age 45-75 12/10/2024 12/10/19 24, 10/30/2022, 08/02/2021, Additional history exists COVID-19 vaccine series ( season) 2025 11/06/2024, 12/10/2023, 06/14/2022, Additional history exists BMI (ht and wt on same day) for age 18+ 07/14/2026 07/14/2025, 04/24/2023, 12/03/2022, Additional history exists Depression screening for age 12+ 07/14/2026 07/14/2025, 08/21/2024, 05/28/2024, Additional history exists Medicare Wellness for age 65+ 07/15/2026 07/14/2025, 12/03/2022, 08/02/2021, Additional history exists Colonoscopy through age 75 06/01/202906/01, 06/01/2019, 11/04/2002 Lipids for age 45-75 07/14/2030 07/14/2025, 05/14/2024, 12/10/2023, Additional history exists Tetanus booster 07/25/2033 07/25/2023, 07/05, 02/17/2004 Hepatitis C screening for age 18-79 Completed 07/28/2020 Pneumococcal series for age 50+ Completed 07/28/2020, 08/06/2018 Zoster (shingles) series for age 50+ Completed 07/25/2023, 02/13/2023 DEXA/DXA scan for age 65+ Addressed 2023 (Verified in Care Everywhere or Patient Record) Overridden with the intention of not completing the topic RSV vaccine for adults or Completed 12/03/2024 Influenza Vaccine Completed 07/14/2025, , 08/08/2023, Additional history exists Hepatitis B series for 19+ Aged Out N o longer eligible based on patient's age to complete this topic Procedures Procedure Name Priority Date/Time Associated Diagnosis Comments FERRITIN Routine 07/14/2025 9:41 AM CDT History of iron deficiency anemia CBC W PLT NO DIFF Routine 07/14/2025 9:4 1 AM CDT History of iron deficiency anemia HEMOGLOBIN A1C Routine 07/14/2025 9:41 AM CDT Prediabetes LIPID PANEL W REFLEX MEASURED LDL Routine 07/14/2025 9:41 AM CDT Hyperlipidemia, unspecified hyperlipidemia type BASIC METABOLIC PANEL Routine 07/14/2025 9:41 AM CDT Primary hypertension SCAN-RADIOLOGY REPORT 05/19/2025 12:00 AM CDT XR MAMMO JLUIS BILAT SCREEN Routine 12/10/2023 9:28 AM COMMUNITY HEALTH NURSE SUPERVISOR Visit for screening mammogram ANTI HCV Routine 07/28/2020 8:59 AM CDT Need for hepatitis C screening test COLONOSCOPY DIAGNOSTIC Routine 06/01/2019 12:00 AM CDT Positive FIT (fecal immunochemical test) from Last 3 Months or Most Recently Relevant to Health Maintenance Results * (ABNORMAL) HEMOGLOBIN A1C (07/14/2025 9:41 AM CDT) HEMOGLOBIN A1C 5.9(H) <5.7 % 07/15/2025 4:54 AM CDT [facility] Comment: For someone without known diabetes, a hemoglobin A1c value between 5.7% and 6.4% is consistent with prediabetes and should be confirmed with a follow-up test. For someone with known diabetes, a value <7% indicates that their diabetes is well controlled. A1c targets should be individualized based on duration of diabetes, age, comorbid conditions, and other considerations. This assay result is consistent with an increased risk of diabetes. Currently, no consensus exists regarding use of hemoglobin A1c for diagnosis of diabetes for children. Blood BLOOD SPECIMEN / Unknown [facility] / Unknown 07/14/2025 9:41 AM CDT 07/14/2025 9:41 AM CDT Taylor Morrow DO CHEMISTRY Final Result [facility] [address] [phone], * LIPID PANEL W REFLEX MEASURED LDL (07/14/2025 9:41 AM CDT) CHOLESTEROL, TOTAL 136 <200 mg/dL 07/15/2025 3:50 AM CDT [facility] TRIGLYCERIDES 87 <150 mg/dL 07/15/2025 3:50 AM CDT [facility] HDL CHOLESTEROL 57 > OR = 50 mg/dL 07/15/2025 3:50 AM CDT [facility] NON HDL CHOLESTEROL 79 <130 mg/dL (calc) 07/15/2025 3:50 AM CDT [facility] Comment: For patients with diabetes plus 1 major ASCVD risk factor, treating to a non-HDL-C goal of <100 mg/dL (LDL-C of <70 mg/dL) is considered a therapeutic option. CHOL/HDLC RATIO 2.4 <5.0 (calc) 07/15/2025 3:50 AM CDT [facility] LDL-CHOLESTEROL 62 mg/dL (calc) 07/15/2025 3:50 AM CDT [facility] Comment: Reference range: <100 Desirable range <100 mg/dL for primary prevention; <70 mg/dL for patients with CHD or diabetic patients with > or = 2 CHD risk factors. LDL-C is now calculated using the Nas calculation, which is a validated novel method providing better accuracy than the Friedewald equation in the estimation of LDL-C. Pavel DO et al. JUANITO. 2013;310(19): 3126-0984 (http://education.HashParade.Bunch/faq/YYC402) Blood BLOOD SPECIMEN / Unknown [facility] / Unknown 07/14/2025 9:41 AM CDT 07/14/2025 9:41 AM CDT Taylor Morrow DO CHEMISTRY Final Result [facility] [address] [place] [phone], * CBC W PLT NO DIFF (07/14/2025 9:41 AM CDT) Pathologist [facility] WHITE BLOOD CELL COUNT 5.3 3.8 - 10.8 Thousand/u L 07/15/2025 3:56 AM CDT [facility] RED BLOOD CELL COUNT 4.49 3.80 - 5.10 Million/uL 07/15/2025 3:56 AM CDT [facility] HEMOGLOBIN 12.7 11.7 - 15.5 g/dL 07/15/2025 3:56 AM CDT [facility] HEMATOCRIT 39.4 35.0 - 45.0 % 07/15/2025 3:56 AM CDT [facility] MCV 87.8 80.0 - 100.0 fL 07/15/2025 3:56 AM CDT [facility] MCH 28.3 27.0 - 33.0 pg 07/15/2025 3:56 AM CDT [facility] MCHC 32.2 32.0 - 36.0 g/dL 07/15/2025 3:56 AM CDT [facility] Comment: For adults, a slight decrease in the calculated MCHC value (in the range of 30 to 32 g/dL) is most likely not clinically significant; however, it should be interpreted with caution in correlation with other red cell parameters and the patient's clinical condition. RDW 12.7 11.0 - 15.0 % 07/15/2025 3:56 AM CDT [facility] PLATELET COUNT 258 140 - 400 Thousand/u L 07/15/2025 3:56 AM CDT [facility] MPV 11.2 7.5 - 12.5 fL 07/15/2025 3:56 AM CDT [facility] Blood BLOOD SPECIMEN / Unknown [facility] / Unknown 07/14/2025 9:41 AM CDT 07/14/2025 9:41 AM CDT Cortica DO HEMATOLOGY Final Result Performing Organization Address [facility]/ZIP Co de Phone Number [facility] [address] [phone], * FERRITIN (07/14/2025 9:41 AM CDT) FERRITIN 16 16 - 288 ng/mL 07/15/2025 3:43 AM CDT [facility] Blood BLOOD SPECIMEN / Unknown [facility] / Unknown 07/14/2025 9:41 AM CDT 07/14/2025 9:41 AM CDT Cortica DO CHEMISTRY Final Result Performing Organization Address [facility]/ZIP Co de Phone Number [facility] [address] [phone], * (ABNORMAL) BASIC METABOLIC PANEL (07/14/2025 9:41 AM CDT) SODIUM 141 135 - 146 mmol/L 07/15/2025 3:50 AM CDT [facility] POTASSIUM 4.4 3.5 - 5.3 mmol/L 07/15/2025 3:50 AM CDT [facility] CARBON DIOXIDE 30 20 - 32 mmol/L 07/15/2025 3:50 AM CDT [facility] GLUCOSE 106(H) 65 - 99 mg/dL 07/15/2025 3:50 AM CDT [facility] Comment: Fasting reference interval For someone without known diabetes, a glucose value between 100 and 125 mg/dL is consistent with prediabetes and should be confirmed with a follow-up test. CALCIUM 9.4 8.6 - 10.4 mg/dL 07/15/2025 3:50 AM CDT [facility] CREATININE 0.55(L) 0.60 - 1.00 mg/dL 07/15/2025 3:50 AM CDT [facility] BUN/CREATININE RATIO 29(H) 6 - 22 (calc) 07/15/2025 3:50 AM CDT [facility] EGFR 97 > OR = 60 mL/min/1. 73m2 07/15/2025 3:50 AM CDT [facility] UREA NITROGEN (BUN) 16 7 - 25 mg/dL 07/15/2025 3:50 AM CDT [facility] ELECTROLYTE BALANCE 8 7 - 17 mmol/L (calc) 07/15/2025 3:50 AM CDT [facility] CHLORIDE 103 98 - 110 mmol/L 07/15/2025 3:50 AM CDT [facility] Blood BLOOD SPECIMEN / Unknown [facility] / Unknown 07/14/2025 9:41 AM CDT 07/14/2025 9:41 AM CDT us Taylor Morrow DO CHEMISTRY Final Result [facility] [address] [place] [address], [place] [phone] * SCAN-RADIOLOGY REPORT (05/19/2025 12:00 AM CDT) Anatomical Region Laterality Modality Other us Scanner OTHER Final Result * XR MAMMO JLUIS BILAT SCREEN (12/10/2023 9:28 AM COMMUNITY HEALTH NURSE SUPERVISOR) Anatomical Region Laterality Modality BREASTS, Breast Left, Breast Right Bilateral Mammography Impressions 12/10/2023 3:17 PM COMMUNITY HEALTH NURSE SUPERVISOR There is no radiographic evidence for malignancy. Recommend annual mammograms. MAMMOGRAM ASSESSMENT: ACR 1 Negative PATIENTS: You will also receive a letter with your examination results in an easy to read format. If you have questions about your results, please contact your referring provider. Narrative 12/10/2023 3:17 PM COMMUNITY HEALTH NURSE SUPERVISOR For Patients: As a result of the Century Cures Act, medical imaging exams and procedure reports are released immediately into your electronic medical record. You may view this report before your referring provider. If you have questions, please contact your health care provider. XR MAMMO JLUIS BILAT SCREEN [[id number]] CLINICAL HISTORY: This is an asymptomatic 68 y.o. patient. INDICATION FOR EXAM: Mammogram Screening. TECHNIQUE: CC & MLO views were obtained. This study was evaluated with the assistance of Computer-Aided Detection. Breast Tomosynthesis was used in interpretation. COMPARISON FILM: Yes 10[facility]30[facility]22 [facility] F[facility]: The breasts are almost entirely fatty. There are no dominant masses, suspicious micro calcifications or areas of architectural distortion. Deepa PRICE MAMMO Final Res ult * ANTI HCV (07/28/2020 8:59 AM CDT) HEPATITIS C ANTIBODY Non-React carla Non-React carla 07/28/2020 3:12 PM CDT [facility] Comment:Antibodies to HCV no t detected; does not exclude the possibility of exposure to HCV. Blood BLOOD SPECIMEN / Unknown Venipuncture / Unknown 07/28/2020 8:59 AM CDT 07/28/2020 8:59 AM CDT Stephanie Ramirez MD SEND OUTS Final Result [facility] [address] [place] [address], * COLONOSCOPY DIAGNOSTIC (06/01/2019 12:00 AM CDT) Stephanie Ramirez MD GI PROCEDURE ORD Final Result from Last 3 Months or Most Recently Relevant to Health Maintenance Insurance [employer] MEDICARE ADVANTAGE MR MEDICARE PART A HB ONLY CRISTINA [facility] [place] [id number] Advance Directives * DNR (Latest Code Status [...] 7:48 AM 01/16/2012 1:48 PM Care Teams Fighter Pilot Relationship Specialty Start Date End Date Taylor [place] [address] PCP - General Family Practice 07/28/24
--- NOTE | 2025-07-22 13:32 | CRLHL7_ITS ---
For Patients: As a result of the Cures Act, medical imaging exams and procedure reports are released immediately into your electronic medical record. You may view this report before your referring provider. If you have questions, please contact your health care provider. INDICATION: Chest pressure, pain, palpitations and hypertension COMPARISON: 05/19/2025 TECHNIQUE: Frontal and lateral radiographic views of the chest. FINDINGS: No pneumothorax. No pleural effusion. No definite focal pulmonary consolidation. Similar cardiomediastinal contours. There is calcified aortic atherosclerosis. There are osseous degenerative changes. There are partially imaged postoperative changes from a left proximal humerus ORIF. IMPRESSION: No acute thoracic findings. Dictated by Adis Polo MD @ 07/22/2025 2:12:42 PM (Electronically Signed)
--- NOTE | 2025-07-22 13:38 | ED.GENADULT ---
HPI - General Adult General Date Seen: 07/22/25 Chief complaint: Chest Pain Stated complaint: Chest pressure, hypertension Time Seen by Provider: 07/22/25 13:08 Source: patient Mode of arrival: ambulatory Limitations: no limitations History of Present Illness HPI narrative: Patient is a 70-year-old female with history of hypertension, coronary artery disease presenting to the emergency department for hypertension and epigastric pain. She was getting ready to get a stress test today when they noticed she was hypertensive. She is also complaining about epigastric pain. Due to the hypertension she could not get her stress test and she was sent to the emergency department with a history of coronary disease and epigastric pain. She thinks the pain is all related to her hiatal hernia she states this pain feels just like her previous episodes when the hernia causes symptoms. Denies any chest pain, shortness of breath, headache, lightheadedness, dizziness, weakness, numbness, diarrhea, constipation. States her previous heart attack she had some mild midsternal chest pain. States this feels very different. No other concerns noted. Does states she feels mildly nauseated but does not want anything for currently. Related Data Home Medications ?Medication ?Instructions ?Recorded ?Confirmed acetaminophen 500 mg tablet 1,000 mg PO Q6H PRN 05/03/23 01/14/25 (Acetaminophen Extra Strength) aspirin 81 mg tablet,delayed 81 mg PO DAILY 05/03/23 01/14/25 release (Adult Aspirin Regimen) gabapentin 300 mg capsule 300 mg PO DAILY 05/03/23 05/19/25 pramipexole 0.5 mg tablet 0.5 mg PO QPM 05/03/23 05/19/25 carvedilol 6.25 mg tablet 6.25 mg PO BID 07/23/24 01/14/25 clopidogrel .Route 07/23/24 01/14/25 nitroglycerin 0.4 mg sublingual 0.4 mg sublingual PRN 07/23/24 01/14/25 tablet rosuvastatin 20 mg tablet 20 mg PO QPM 07/23/24 05/19/25 lisinopril 20 mg tablet 20 mg PO BID 10/08/24 05/19/25 esomeprazole magnesium 40 mg 40 mg PO DAILY 01/14/25 05/19/25 capsule,delayed release carvedilol 12.5 mg tablet 12.5 mg PO BID 05/19/25 05/19/25 clopidogrel 75 mg tablet 75 mg PO DAILY 05/19/25 05/19/25 Previous Rx's ?Medication ?Instructions ?Recorded sucralfate 1 gram tablet 1 g PO TID #90 tabs 05/19/25 Allergies Allergy/AdvReac Type Severity Reaction Status Date / Time No Known Drug Allergies Allergy Verified 07/22/25 13:16 Review of Systems Status of ROS: Reports: 10 or more systems reviewed and unremarkable except as noted in History and below [facility] Medical History Hiatal hernia ?K44.9 - Diaphragmatic hernia without obstruction or gangrene (ICD-10) Renal cyst, right ?N28.1 - Cyst of kidney, acquired (ICD-10) Anxiety ?F41.9 - Anxiety disorder, unspecified (ICD-10) TIFFANY (obstructive sleep apnea) ?G47.33 - Obstructive sleep apnea (adult) (pediatric) (ICD-10) Other and unspecified hyperlipidemia ?E78.5 - Hyperlipidemia, unspecified (ICD-10) Esophageal reflux ?K21.9 - Gastro-esophageal reflux disease without esophagitis (ICD-10) Unspecified essential hypertension ?I10 - Essential (primary) hypertension (ICD-10) Lump of skin ?R22.9 - Localized swelling, mass and lump, unspecified (ICD-10) Surgical History Hx of knee surgery ?Z98.890 - Other specified postprocedural states (ICD-10) History of shoulder surgery ?Z98.890 - Other specified postprocedural states (ICD-10) History of surgery on wrist ?Z98.890 - Other specified postprocedural states (ICD-10) Hx of wisdom tooth extraction ?K08.409 - Partial loss of teeth, unspecified cause, unspecified class (ICD-10) History of carpal tunnel release ?Z98.890 - Other specified postprocedural states (ICD-10) Hx of breast biopsy ?Z98.890 - Other specified postprocedural states (ICD-10) Social History Smoking Status: Former smoker How often do you have a drink containing alcohol: never AUDIT-C Alcohol total score: 0 Non-prescribed substance use: denies use Caffeine: Yes service: No Exam Narrative: Exam Narrative: Const: Well-nourished, Well-developed, in no distress Eyes: PERRL, no conjunctival injection, and symmetrical lids HENT: Atraumatic external nose and ears. Moist mucous membranes. Neck: Symmetric, trachea midline, No thyromegaly. CVS: RRR, No murmurs or gallops. Peripheral pulses 2+ and equal in all extremities RESP: Unlabored respiratory effort. Clear to auscultation bilaterally. GI: Nontender/Nondistended, No rebound or guarding. MSK:Extremities w/o deformity, Normal Active ROM Skin: Warm, Dry. No rashes or lesions. Neuro: Normal Muscle tone, No focal neurological deficits. Psych: Awake, Alert, & Oriented x3. Appropriate mood and affect. Const: Vital Signs, click to edit/add: Vital Signs - 24 hr 07/22/25 13:16 Temperature 97.5 F L Pulse Rate [Pulse Oximeter] 67 Respiratory Rate 16 Blood Pressure [Ri ght Upper Arm] 209/111 H Pulse Oximetry 94 Oxygen Delivery Me thod Room Air Course Vital Signs Vital signs: Initial Vital Signs Temperature 97.5 F L 07/22/25 13:16 Temperature Source Temporal Artery Scan 07/22/25 13:16 Pulse Rate 67 07/22/25 13:16 Respiratory Rate 16 07/22/25 13:16 Blood Pressure 209/111 H 07/22/25 13:16 Blood Pressure Mean 143 H 07/22/25 13:16 Blood Pressure Position Sitting 07/22/25 13:16 Pulse Oximetry 94 07/22/25 13:16 Oxygen Delivery Method Room Air 07/22/25 13:16 Vital Signs Temperature 97.5 F L 07/22/25 13:16 Pulse Rate 67 07/22/25 13:16 Respiratory Rate 16 07/22/25 13:16 Blood Pressure 209/111 H 07/22/25 13:16 Pulse Oximetry 94 07/22/25 13:16 Oxygen Delivery Method Room Air 07/22/25 13:16 Temperature 97.5 F L 07/22/25 13:16 Pulse Rate 67 07/22/25 13:16 Respiratory Rate 16 07/22/25 13:16 Blood Pressure 209/111 H 07/22/25 13:16 Pulse Oximetry 94 07/22/25 13:16 Oxygen Delivery Method Room Air 07/22/25 13:16 Medications Administered Medications: Discontinued Medications Generic Name Dose Route Start Last Admin Trade Name Luke PRN Reason Stop Dose Admin Aspirin 324 mg 07/22/25 13:32 07/22/25 14:23 Aspirin 81 Mg Tab.Chew PO 07/22/25 13:33 243 mg ONCE ONE Administration Medical Decision Making MDM Narrative Medical decision making narrative: Patient is a 70-year-old female presenting to emergency department for hypertension and epigastric pain. Concerning epigastric pain could be signs of cardiac abnormalities will treat this as chest pain. The differential diagnosis of chest pain is broad and includes common etiologies such as musculoskeletal strain, GERD, pneumonia, etc. More serious etiologies considered include PE, coronary artery disease, pneumothorax, aortic dissection, aortic aneurysm. She is hypertensive so there is a possibility further dissection and PE. Will do a D-dimer for better evaluation. Chest x-ray ordered look for signs pneumonia or pneumothorax. Will do EKG troponin to look for signs of cardiac abnormalities. Also order CBC, BMP, magnesium, lipase and give aspirin for her pain. Patient's lab work returned showing no acute concerning abnormalities. D-dimer within normal limits and I believe it is unlikely she is having a PE or aortic dissection. Troponin within normal limits. She states his epigastric pain has been going on for a long time I do not believe it is necessary to repeat the troponin. EKG reviewed by myself shows no acute concerning abnormalities chest x-ray reviewed myself the radiologist shows no concerning findings. She is doing well this time. On my review vital signs are stable throughout time in in the emergency department. Oximetry stayed in the mid to high 90s. She did have an episode which is up done to 85% on room air after walking to the bathroom and back but then we walked her again after she stated 95%. telemetry monitor showed no concerning arrhythmias. He did give her an extra dose of her blood pressure medication. At this time I do believe she is safe for discharge. She is agreeable to this plan. She is already working on scheduling follow-up with her primary care provider Lab Data Labs: Lab Results 07/22/25 Range/Units 14:15 WBC 6.55 (4.50-11.00) K/uL RBC 4.65 (4.00-5.20) m/uL Hgb 12.7 (12.0-16.0) gm/dL Hct 39.9 (33.0-51.0) % MCV 86 (80-100) fL MCH 27 (26-34) pg MCHC 32 (32-36) gm/dL RDW Coeff of Matt 12.8 (11.5-15.5) % Plt Count 226 (140-440) K/uL Neut % (Auto) 71.5 (42.0-72.0) % Lymph % (Auto) 19.4 L (20-44) % Sibley % (Auto) 7.5 (0.0-11.0) % Eos % (Auto) 0.9 (0.0-7.0) % Baso % (Auto) 0.5 (0.0-3.0) % Neut # (Auto) 4.69 (1.7-7.0) K/uL Lymph # (Auto) 1.30 (0.90-2.90) K/uL Sibley # (Auto) 0.50 (0.00-0.90) K/UL Eos # (Auto) 0.06 (0.00-0.50) K/uL Baso # (Auto) 0.03 (0.00-0.30) K/uL Abs Immat Gran (auto) 0.01 (0.00-0.30) K/uL Imm/Tot Granulo (auto) 0.2 % D-Dimer Quant (PE/DVT) < 0.27 (0.00-0.50) ug/ml Sodium 139 (135-149) mmol/L Potassium 3.5 L (3.6-5.1) mmol/L Chloride 101 (96-114) mmol/L Carbon Dioxide 32 (20-32) mmol/L Anion Gap 6 L (7-15) mEq/L BUN 14 (7-30) mg/dL Creatinine 0.6 (0.5-1.5) mg/dL Estimated Creat Clear 43.91 Estimated GFR 95 ml/min Glucose 101 (60-115) mg/dL Calcium 9.5 (8.4-10.6) mg/dL Magnesium 1.6 (1.5-2.6) mg/dL Troponin I < 0.01 (0.01-0.04) ng/mL Lipase 34 (23-300) U/L Imaging Data Chest x-ray: Radiologist's impression: On my review vital signs are stable throughout time in in the emergency department. Oximetry stayed in the mid to high 90s. telemetry monitor showed no concerning arrhythmias. ECG Data Attestation: I personally reviewed and interpreted this ECG as follows: Interpretation: Normal sinus rhythm with a rate of 69 beats per minute, normal intervals, normal axis, no ST or T-wave abnormalities. Appears similar previous EKG on file Discharge Plan Discharge Clinical Impression: Epigastric abdominal pain Hypertension Qualifiers: Hypertension type: unspecified Qualified Code(s): I10 - Essential (primary) hypertension Patient Disposition: Home, Self-Care Condition: Stable Instructions: Hypertension (ED) Additional Instructions: I recommend close follow-up with your primary care provider about her blood pressure. Return to emergency department for new or worsening symptoms Prescriptions: No Action lisinopril 20 mg tablet 20 mg PO BID acetaminophen [Acetaminophen Extra Strength] 500 mg tablet 1,000 mg PO Q6H PRN aspirin [Adult Aspirin Regimen] 81 mg tablet,delayed release (DR/EC) 81 mg PO DAILY pramipexole 0.5 mg tablet 0.5 mg PO QPM gabapentin 300 mg capsule 300 mg PO DAILY esomeprazole magnesium 40 mg capsule,delayed release(DR/EC) 40 mg PO DAILY carvedilol 12.5 mg tablet 12.5 mg PO BID clopidogrel 75 mg tablet 75 mg PO DAILY sucralfate 1 gram tablet 1 g PO TID Qty: 90 0RF carvedilol 6.25 mg tablet 6.25 mg PO BID nitroglycerin 0.4 mg tablet, sublingual 0.4 mg sublingual PRN rosuvastatin 20 mg tablet 20 mg PO QPM clopidogrel [Plavix] .Route Follow Up/Referrals: Taylor Morrow DO [Primary Care Provider, Family Practice] Stand Alone Forms: [facility] Info Instructions
[2025-07-22 14:22] LABS: Hematocrit* 39.9 % (33.0-51.0); Hemoglobin* 12.7 gm/dL (12.0-16.0); Immature Granulocytes Abs Auto 0.01 K/uL (0.00-0.30); Immature Granulocytes Pct Auto 0.2 %; Mean Corpuscular HGB Conc 32 gm/dL (32-36); Mean Corpuscular Hemoglobin 27 pg (26-34); Mean Corpuscular Volume 86 fL (80-100); RDW Coefficient of Variation % 12.8 % (11.5-15.5); Red Blood Count* 4.65 m/uL (4.00-5.20); White Blood Count* 6.55 K/uL (4.50-11.00)
[2025-07-22] MEDS: ASPIRIN 81 MG TAB.CHEW 324 MG PO (14:23)
[2025-07-22 14:33] LABS: Lymphocytes Absolute Auto 1.30 K/uL (0.90-2.90); Slide Review Reflex No
[2025-07-22 14:41] LABS: Chloride* 101 mmol/L (96-114); Sodium* 139 mmol/L (135-149)
[2025-07-22 14:42] LABS: Potassium* 3.5 mmol/L (3.6-5.1)
[2025-07-22 14:44] LABS: Blood Urea Nitrogen* 14 mg/dL (7-30); Creatinine* 0.6 mg/dL (0.5-1.5); Est. Creatinine Clearance* 43.91; Estimated Glomerular Filt Rate 95 ml/min
[2025-07-22 14:45] LABS: Anion Gap 6 mEq/L (7-15); Calcium* 9.5 mg/dL (8.4-10.6); Carbon Dioxide* 32 mmol/L (20-32); Glucose* 101 mg/dL (60-115)
[2025-07-22 14:47] LABS: D Dimer Quantitative* < 0.27 ug/ml (0.00-0.50)
== END 2025-07-22 15:54 | disposition home or self-care (01) ==
PROVIDERS: Emergency Provider Student in an Organized Health Care Education/Training Program; PCP Family Medicine
DX: R10.13 Epigastric pain (principal); I10 Essential (primary) hypertension; R07.9 Chest pain, unspecified
CPT/HCPCS: 36415; 71046; 80048; 83690; 83735; 84484; 85025; 85379; 93005; 99284; 99285; A9270